=== PATIENT | female | born 1930 | race Caucasian/White ===

== ENCOUNTER 2017-09-09 14:52 | Emergency (ER) | payer MEDICARE ==
[2017-09-09 15:10] VITALS: BP 168/88
--- NOTE | 2017-09-09 15:37 | EDM.PDOC ---
ED HPI GENERAL MEDICAL PROBLEM - General Chief Complaint: General Stated Complaint: Fall, R knee pain Time Seen by Provider: 09/09/17 14:56 Source of Information: Reports: Patient History Limitations: Reports: No Limitations - History of Present Illness INITIAL COMMENTS - FREE TEXT/NARRATIVE: Patient fell this morning and reports injuring right lower leg. Comes to ER concerned that she may have re-torn cartilage that was previously injured in that same leg. Earlier injury required Orthopedic surgery in right knee area. Contused area noted today is below right knee. Patient uses walker at home, sometimes cane. Has cane during this visit. Denies other injuries at this time. No pain above/below injured area. No neuro changes. Was in process of turning and subsequently lost balance when she fell. Left Leg Pain Score (Numeric/FACES): 7 - Related Data Allergies Allergy/AdvReac Type Severity Reaction Status Date / Time nitrofurantoin Allergy Stomach Verified 10/30/14 09:44 [From Macrobid] Upset nitrofurantoin Allergy Stomach Verified 10/30/14 09:44 macrocrystalline Upset [From Macrobid] Sulfa (Sulfonamide Allergy Stomach Verified 10/30/14 09:44 Antibiotics) Upset Home Meds: Home Meds [place] 1 tab PO DAILY 10/30/14 [History] Ginkgo Biloba 40 mg PO BID 10/30/14 [History] Multivit with Calcium,Iron,Min [Therapeutic M] 1 each PO TID 10/30/14 [History] Aspirin 81 mg PO DAILY PRN 07/16/15 [History] Cranberry 500 mg PO BID 07/16/15 [History] Vit A/Vit C/Vit E/Zinc/Copper [Preservision] 1 tab PO DAILY 09/09/17 [History] Past Medical History Cardiovascular History: Reports: Hypertension, Other (See Below) (pacemaker) Endocrine/Metabolic History: Reports: Diabetes, Type II Social & Family History - Tobacco Use Smoking Status *Q: Never Smoker Second Hand Smoke Exposure: No - Alcohol Use Days Per Week of Alcohol Use: 0 - Recreational Drug Use Recreational Drug Use: No Drug Use in Last 12 Months: No - Living Situation & Occupation Living situation: Reports: , Alone Occupation: Other ED ROS GENERAL - Review of Systems Review Of Systems: ROS reveals no pertinent complaints other than HPI. Constitutional: Denies: Fever, Chills, Weakness, Night Sweats, Diaphoresis, Decreased Appetite HEENT: Reports: No Symptoms Respiratory: Reports: No Symptoms Cardiovascular: Reports: No Symptoms GI/Abdominal: Reports: No Symptoms : Reports: No Symptoms Musculoskeletal: Reports: No Symptoms Skin: Reports: Bruising Neurological: Reports: No Symptoms Psychiatric: Reports: No Symptoms Hematologic/Lymphatic: Reports: No Symptoms ED EXAM, GENERAL - Physical Exam Exam: See Below Exam Limited By: No Limitations General Appearance: Alert, WD/WN, No Apparent Distress Eye Exam: Bilateral Eye: EOMI, PERRL Head: Atraumatic, Normocephalic Neck: Supple, Non-Tender Respiratory/Chest: No Respiratory Distress Cardiovascular: Normal Peripheral Pulses, Regular Rate, Rhythm, No Edema Peripheral Pulses: 2+: Brachial (L), Brachial (R), Dorsalis Pedis (L), Dorsalis Pedis (R) GI/Abdominal: Soft, Non-Tender Extremities: Normal Capillary Refill, Other (bruising and mild swelling noted anterior lower leg just below knee. Both knees have good ROM/non-tender with palpation/no crepitus. Right leg non-tender distal to injury. ) Neurological: Alert, Oriented, Normal Cognition, No Motor/Sensory Deficits Psychiatric: Normal Affect, Normal Mood Skin Exam: Warm, Dry Course - Vital Signs Last Recorded V/S: Last Vital Signs Temp 37.1 C 09/09/17 15:00 Pulse 88 09/09/17 15:00 Resp 16 09/09/17 15:00 BP 168/88 H 09/09/17 15:00 Pulse Ox 100 09/09/17 15:00 - Orders/Labs/Meds Orders: Active Orders 24 hr Category Date Time Status Knee 3V Rt [CR] Stat Exams 09/09/17 14:59 Ordered - Re-Assessments/Exams Free Text/Narrative Re-Assessment/Exam: 09/09/17 15:47 Xrays of knee taken. There appears to be a small irregularity in right patella but patient has no soreness or injury in this area. No Tibial plateau fracture or other abnormality identified in the proximal tib/fib area where bruising and swelling noted. Patient observed ambulating. She does have antalgic gait and has limitations with using of both lower extremities. She was offered admission as observation patient in order to get assistance with ADLs given that her mobility is worsened from the fall. Would also be able to have PT/OT evaluate patient in the morning. Patient declined and preferred to try to go home, saying that she has a walker that she can use once there. Precautions reviewed prior to discharge, especially pertaining to ambulating given her previous baseline gait issues that area now further compromised due to the fall injury. Patient is agreeable with plan. She was given ride home via [employer] bus. Departure - Departure Time of Disposition: 15:33 Disposition: Home, Self-Care 01 Condition: Good Clinical Impression: Contusion of right lower extremity Qualifiers: Encounter type: initial encounter Qualified Code(s): S80.11XA - Contusion of right lower leg, initial encounter Clinical Impression: (Ruled Out): Contusion of right knee - Discharge Information Referrals: Evette Lacy NP [Primary Care Provider] - Forms: ED Department Discharge Additional Instructions: Use your walker for more stability when walking. Ice the bruised area to help with swelling and pain. If you find that you can not perform basic chores at home, like feeding yourself or using bathroom, you can return to the ER and we can consider admitting you for 1-2 days to help assist you with these things while the initial knee pain/swelling improves. OK to use Tylenol for pain. - My Orders Last 24 Hours: My Active Orders 09/09/17 14:59 Knee 3V Rt [CR] Stat - Assessment/Plan Last 24 Hours: My Active Orders 09/09/17 14:59 Knee 3V Rt [CR] Stat
== END 2017-09-09 15:45 | disposition home or self-care (01) ==
LOC: LL.ED 14:52
DX: S80.11XA Contusion of right lower leg, initial encounter (principal); I10 Essential (primary) hypertension; E11.9 Type 2 diabetes mellitus without complications; Z88.2 Allergy status to sulfonamides; Z88.8 Allergy status to other drugs, medicaments and biological substances; Z79.82 Long term (current) use of aspirin; X58.XXXA Exposure to other specified factors, initial encounter
CPT/HCPCS: 73562-RT; 99283

== ENCOUNTER 2020-12-09 23:18 | Emergency (ER) | payer MEDICARE ==
[2020-12-09] MEDS ORDERED: Sodium Chloride 0.9% 10 ML Syringe FLUSH PRN (23:54)
[2020-12-10 00:34] LABS: CHLORIDE,CL 101 mmol/L (98-107); SODIUM,NA 135 mmol/L (136-145)
[2020-12-10 00:58] LABS: CORONAVIRUS COVID-19 AG NEGATIVE (NEGATIVE)
--- NOTE | 2020-12-10 01:13 | EDM.PDOC ---
ED HPI GENERAL MEDICAL PROBLEM - General Chief Complaint: General Stated Complaint: fell outside Time Seen by Provider: 12/09/20 23:30 Source of Information: Reports: Patient, EMS History Limitations: Reports: No Limitations - History of Present Illness INITIAL COMMENTS - FREE TEXT/NARRATIVE: Pt tripped and fell in garage and laid there for several hours Neighbor called EMS Pt presents to ER with complaints of right hip pain No other complaints Onset: Today, Sudden Duration: Hour(s): Location: Reports: Lower Extremity, Right Quality: Reports: Throbbing Severity: Moderate Improves with: Reports: Immobilization Worsens with: Reports: Movement - Related Data Allergies Allergy/AdvReac Type Severity Reaction Status Date / Time nitrofurantoin Allergy Stomach Verified 12/09/20 23:50 [From Macrobid] Upset nitrofurantoin Allergy Stomach Verified 12/09/20 23:50 macrocrystalline Upset [From Macrobid] Sulfa (Sulfonamide Allergy Stomach Verified 12/09/20 23:50 Antibiotics) Upset Home Meds: Home Meds [place] 1 tab PO DAILY 10/30/14 [History] Ginkgo Biloba 40 mg PO BID 10/30/14 [History] Multivit with Calcium,Iron,Min [Therapeutic M] 1 each PO TID 10/30/14 [History] Aspirin 81 mg PO DAILY PRN 07/16/15 [History] Cranberry 500 mg PO BID 07/16/15 [History] Vit A/Vit C/Vit E/Zinc/Copper [Preservision] 1 tab PO DAILY 09/09/17 [History] Past Medical History HEENT History: Reports: Hard of Hearing, Impaired Vision, Other (See Below) Other HEENT History: wears glasses and bilat hearing aides Cardiovascular History: Reports: Hypertension, Pacemaker, Other (See Below) 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 History: Reports: Endocrine/Metabolic History: Reports: Diabetes, Type II - Past Surgical History Cardiovascular Surgical History: Reports: Pacer Social & Family History - Tobacco Use Tobacco Use Status *Q: Unknown Ever Used Tobacco Second Hand Smoke Exposure: No - Caffeine Use Caffeine Use: Reports: Coffee - Recreational Drug Use Recreational Drug Use: No - Living Situation & Occupation Living situation: Reports: , Alone Occupation: Other ED ROS GENERAL - Review of Systems Review Of Systems: See Below Constitutional: Reports: No Symptoms HEENT: Reports: No Symptoms Respiratory: Reports: No Symptoms Cardiovascular: Reports: No Symptoms GI/Abdominal: Reports: No Symptoms Musculoskeletal: Reports: Joint Pain, Other (Right hip pain) Neurological: Reports: No Symptoms Psychiatric: Reports: No Symptoms ED EXAM, GENERAL - Physical Exam Exam: See Below Exam Limited By: No Limitations General Appearance: Alert, WD/WN, Mild Distress Eye Exam: Bilateral Eye: EOMI, PERRL Ears: Normal TMs Nose: Normal Inspection Throat/Mouth: Normal Oropharynx Head: Atraumatic Neck: Supple, Non-Tender Respiratory/Chest: Lungs Clear Cardiovascular: Regular Rate, Rhythm GI/Abdominal: Soft, Non-Tender Extremities: Other (Right hip tender with palpation RLE shortened and rotated Neurovascular intact) Neurological: Alert, Oriented, No Motor/Sensory Deficits Psychiatric: Normal Affect, Normal Mood Course - Vital Signs Last Recorded V/S: Last Vital Signs Temp 96.7 F L 12/10/20 00:43 Pulse 66 12/09/20 23:37 Resp 20 12/09/20 23:37 BP 113/57 L 12/09/20 23:37 Pulse Ox 98 12/09/20 23:37 - Orders/Labs/Meds Orders: Active Orders 24 hr Category Date Time Status Hip Min 1V Lt [CR] Stat Exams 12/09/20 23:57 Ordered Hip Min 1V Rt [CR] Stat Exams 12/09/20 23:34 Taken CORONAVIRUS COVID-19 ALEXUS [MOLEC] Stat Lab 12/10/20 00:10 Received Sodium Chloride 0.9% [Saline Flush] Med 12/09/20 23:54 Active 10 ml FLUSH ASDIRECTED PRN Saline Lock Insert [OM.PC] Routine Oth 12/09/20 23:54 Ordered Medication Orders Sodium Chloride (Saline Flush) 10 ml FLUSH ASDIRECTED PRN PRN Reason: Keep Vein Open Labs: Laboratory Tests 12/10/20 12/10/20 Range/Units 00:10 00:10 WBC 17.9 H (4.0-10.2) K/uL RBC 2.85 L (3.77-5.09) M/uL Hgb 9.8 L D (11.7-15.5) g/dL Hct 29.6 L (34.0-46.0) % MCV 103.9 H (84.0-98.0) fL MCH 34.4 H (28.2-33.3) pg MCHC 33.1 (31.7-36.0) g/dL RDW 14.3 H (11.2-14.1) % Plt Count 275 (150-350) K/uL Neut % (Auto) 80.6 H (45.0-80.0) % Lymph % (Auto) 9.6 L (10.0-50.0) % [place] % (Auto) 9.5 (2.0-14.0) % Eos % (Auto) 0.1 (0.0-5.0) % Baso % (Auto) 0.2 (0.0-2.0) % Neut # (Auto) 14.40 H (1.40-7.00) K/uL Lymph # (Auto) 1.72 (0.50-3.50) K/uL [place] # (Auto) 1.69 H (0.00-1.00) K/uL Eos # (Auto) 0.01 (0.00-0.50) K/uL Baso # (Auto) 0.04 (0.00-0.20) K/uL Sodium 135 L (136-145) mmol/L Potassium 3.1 L (3.5-5.1) mmol/L Chloride 101 (98-107) mmol/L Carbon Dioxide 19.5 L D (21.0-32.0) mmol/L BUN 25 H (7-18) mg/dL Creatinine 0.96 (0.51-1.17) mg/dL Est Cr Clr Drug Dosing 34.31 mL/min Estimated GFR (MDRD) 55 mL/min Glucose 514 H* (74-106) mg/dL Calcium 9.0 (8.5-10.1) mg/dL Total Bilirubin 0.5 (0.2-1.0) mg/dL AST 29 (15-37) U/L ALT 22 (12-78) U/L Alkaline Phosphatase 53 (46-116) IU/L Total Protein 6.3 L (6.4-8.2) g/dL Albumin 3.4 (3.4-5.0) g/dL SARS-CoV-2 Ag (Rapid) Negative (NEGATIVE) Meds: Medications Generic Name Dose Route Start Last Admin Trade Name Freq PRN Reason Stop Dose Admin Sodium Chloride 10 ml 12/09/20 23:54 Saline Flush FLUSH ASDIRECTED PRN Keep Vein Open - Re-Assessments/Exams Free Text/Narrative Re-Assessment/Exam: 12/10/20 01:10 See lab Xray: Moderately angulated right intertrochanteric hip fracture D/W Dr [facility] Will accept in transfer Transfer via EMS Departure - Departure Time of Disposition: 01:15 Disposition: DC/Tfer to [facility] 02 Clinical Impression: Closed right hip fracture Qualifiers: Encounter type: initial encounter Qualified Code(s): S72.001A - Fracture of unspecified part of neck of right femur, initial encounter for closed fracture - Discharge Information *PRESCRIPTION DRUG MONITORING PROGRAM REVIEWED*: Not Applicable *COPY OF PRESCRIPTION DRUG MONITORING REPORT IN PATIENT MELECIO: Not Applicable Referrals: PCP,Unknown [Primary Care Provider] - Sepsis Event Note (ED) - Evaluation Sepsis Screening Result: No Definite Risk - Focused Exam Vital Signs: Vital Signs Temp Pulse Resp BP Pulse Ox 12/10/20 00:43 96.7 F L 12/09/20 23:37 66 20 113/57 L 98 12/09/20 23:35 94.9 F L 76 22 H 116/68 93 L 12/09/20 23:25 66 20 106/64 93 L - My Orders Last 24 Hours: My Active Orders 12/09/20 23:34 Hip Min 1V Rt [CR] Stat 12/09/20 23:54 Sodium Chloride 0.9% [Saline Flush] 10 ml FLUSH ASDIRECTED PRN Saline Lock Insert [OM.PC] Routine 12/09/20 23:57 Hip Min 1V Lt [CR] Stat 12/10/20 00:10 CORONAVIRUS COVID-19 ALEXUS [MOLEC] Stat - Assessment/Plan Last 24 Hours: My Active Orders 12/09/20 23:34 Hip Min 1V Rt [CR] Stat 12/09/20 23:54 Sodium Chloride 0.9% [Saline Flush] 10 ml FLUSH ASDIRECTED PRN Saline Lock Insert [OM.PC] Routine 12/09/20 23:57 Hip Min 1V Lt [CR] Stat 12/10/20 00:10 CORONAVIRUS COVID-19 ALEXUS [MOLEC] Stat
[2020-12-10] MEDS ORDERED: Sodium Chloride 0.9% 500 ML IV SCH (02:15)
[2020-12-10 03:22] VITALS: BP 109/68; PULSE 76
== END 2020-12-10 02:38 ==
LOC: LL.ED 23:18
DX: S72.141A Displaced intertrochanteric fracture of right femur, initial encounter for closed fracture (principal); I10 Essential (primary) hypertension; E11.9 Type 2 diabetes mellitus without complications; Z88.1 Allergy status to other antibiotic agents; Z88.2 Allergy status to sulfonamides; Z20.822 Contact with and (suspected) exposure to COVID-19; Z79.899 Other long term (current) drug therapy; Z79.82 Long term (current) use of aspirin; W19.XXXA Unspecified fall, initial encounter; Y92.59 Other trade areas as the place of occurrence of the external cause
CPT/HCPCS: 36415; 80053; 85025; 87426; 99284; 99285; J7040; U0002

== ENCOUNTER 2020-12-14 11:43 | Inpatient (IN) | payer MEDICARE ==
--- NOTE | 2020-12-14 16:19 | PCM.HP.2 ---
H&P History of Present Illness - General Date of Service: 12/14/20 Admit Problem/Dx: S/P surgical fixation right hip fracture Source of Information: Patient, Family, Other ([facility] records) History Limitations: Reports: No Limitations - History of Present Illness Initial Comments - Free Text/Narative: Patient referred to Swing Bed from [facility] in [place]. Recent fall with subsequent right hip fracture that required surgical repair. Noted to have elevated blood sugars and blood pressure readings during stay in [place]. Here for PO/OT with hope of being able to return to her own home. - Related Data Allergies/Adverse Reactions: Allergies Allergy/AdvReac Type Severity Reaction Status Date / Time nitrofurantoin Allergy Stomach Verified 12/14/20 15:19 [From Macrobid] Upset nitrofurantoin Allergy Stomach Verified 12/14/20 15:19 macrocrystalline Upset [From Macrobid] Sulfa (Sulfonamide Allergy Stomach Verified 12/14/20 15:19 Antibiotics) Upset Home Medications: Home Meds Ginkgo Biloba 40 mg PO DAILY 10/30/14 [History] Aspirin 81 mg PO Q48H 07/16/15 [History] Acetaminophen [Tylenol] 650 mg PO Q4H PRN 12/14/20 [History] [place] 500 mg PO DAILY 12/14/20 [History] Bisacodyl [Laxative Suppository] 10 mg RC DAILY PRN 12/14/20 [History] Calcium Carb/D3/Mag AA Chelate [Coral Calcium Capsule] 1 each PO DAILY 12/14/20 [History] Cinnamon Bark [Cinnamon] 1,000 mg PO DAILY 12/14/20 [History] Cranberry Fruit Extract [Cranberry] 425 mg PO DAILY 12/14/20 [History] Docusate Sodium/Sennosides [Senna Plus] 2 each PO BID PRN 12/14/20 [History] Enoxaparin [Lovenox] 40 mg SQ DAILY 12/14/20 [History] Insulin Glarg,Human.Rec.Analog [Lantus] 8 unit SQ DAILY 12/14/20 [History] Lactobacillus Acidophilus [Probiotic] 1 each PO DAILY 12/14/20 [History] Losartan [Cozaar] 25 mg PO DAILY 12/14/20 [History] Metoprolol Tartrate [Lopressor] 12.5 mg PO Q12HR 12/14/20 [History] Non-Formulary Medication [NF Drug] 1 each PO DAILY 12/14/20 [History] Non-Formulary Medication [NF Drug] 1 each PO DAILY 12/14/20 [History] polyethylene glycoL 3350 [MiraLAX] 17 gm PO DAILY 12/14/20 [History] Past Medical History HEENT History: Reports: Hard of Hearing, Impaired Vision, Other (See Below) Other HEENT History: wears glasses and bilat hearing aides Cardiovascular History: Reports: Aneurysm (AAA), Hypertension, Pacemaker, Other (See Below) Other Cardiovascular History: NSTEMI. 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 Genitourinary History: Reports: Chronic Renal Insuffiency (State 3a) [employer] History: Reports: Musculoskeletal History: Reports: Osteoarthritis Endocrine/Metabolic History: Reports: Diabetes, Type II Hematologic History: Reports: Anemia (Macrocytic Anemia) - Past Surgical History Cardiovascular Surgical History: Reports: Pacer Other Musculoskeletal Surgeries/Procedures:: RTHA 12/09/20 ORIF Social & Family History - Caffeine Use Caffeine Use: Reports: Coffee - Alcohol Use Alcohol Use History: No - Living Situation & Occupation Living situation: Reports: , Alone Occupation: Other H&P Review of Systems - Review of Systems: Review Of Systems: See Below General: Reports: Weakness. Denies: Fever, Chills, Night Sweats, Diaphoresis, Weight Loss HEENT: Denies: Headaches, Sore Throat, Visual Changes Pulmonary: Reports: No Symptoms Cardiovascular: Reports: No Symptoms Gastrointestinal: Reports: No Symptoms Genitourinary: Reports: No Symptoms Musculoskeletal: Reports: Other (right hip pain ) Skin: Reports: Other (healing incision right hip/bruising from IVs and blood draws arms. ) Psychiatric: Reports: No Symptoms Neurological: Reports: Difficulty Walking (s/p surgery on right hip), Weakness (generalized). Denies: Change in Speech Hematologic/Lymphatic: Denies: Swollen Glands Exam - Exam Exam: See Below - Exam Quality Assessment: Urinary Catheter, DVT Prophylaxis General: Alert, Oriented, Cooperative HEENT: Conjunctiva Clear, EACs Clear, EOMI, Hearing Intact, Mucosa Moist & Gutierrez, Nares Patent, Pupils Equal, Pupils Reactive Neck: Supple, Trachea Midline Lungs: Clear to Auscultation, Normal Respiratory Effort Cardiovascular: Regular Rate, Regular Rhythm. No: Systolic Murmur, Diastolic Murmur GI/Abdominal Exam: Normal Bowel Sounds, Soft, Non-Tender, No Distention (Female) Exam: Deferred Rectal (Female) Exam: Deferred Back Exam: No: CVA Tenderness (L), CVA Tenderness (R), Muscle Spasm, Paraspinal Tenderness, Vertebral Tenderness Extremities: Normal Capillary Refill, Other (healing incision lateral right upper thigh from her recent surgery. Dressing left in place. No drainage/swelling/redness noted. ). No: Pedal Edema, Joint Swelling, Osmar's Sign, Leg Pain, Increased Warmth, Mottled, Pallor, Redness Peripheral Pulses: 2+: Radial (L), Radial (R), Dorsalis Pedis (L), Dorsalis Pedis (R) Skin: Warm, Dry, Other (scattered bruises on arms from IVs and blood draws. Healing scrape right anterior knee from patient's recent fall. Healing incision right hip area) Neurological: Cranial Nerves Intact, Reflexes Equal Bilateral, Strength Equal Bilateral Neuro Extensive - Mental Status: Alert, Oriented x3, Normal Mood/Affect, Normal Cognition, Memory Intact - Problem List (1) Closed right hip fracture SNOMED Code(s): 992731103 ICD Code: S72.001A - FRACTURE OF UNSP PART OF NECK OF RIGHT FEMUR, INIT Status: Acute Priority: High Current Visit: No Onset Date: 12/09/20 Problem Details: Right hip fracture from fall in garage at home. ORIF at [facility] in [place]. Here for PT/OT. Qualifiers: Encounter type: subsequent encounter Qualified Code(s): S72.001A - Fracture of unspecified part of neck of right femur, initial encounter for closed fracture (2) HTN, Benign hypertension SNOMED Code(s): 73902381 ICD Code: I10 - ESSENTIAL (PRIMARY) HYPERTENSION Status: Chronic Priority: High Current Visit: Yes Problem Details: Patient not on any antihypertensives until her recent fall due to her refusal to take them in the past. Antihypertensive therapy initiated by [facility]. Observe trends. (3) Diabetes mellitus SNOMED Code(s): 73177255 ICD Code: E11.9 - TYPE 2 DIABETES MELLITUS WITHOUT COMPLICATIONS Status: Chronic Priority: Medium Current Visit: Yes Problem Details: Started on insulin therapy by [facility]. Continue accuchecks and adjust doses as indicated. Patient received diabetic consult while in [place]. (4) Macrocytic anemia SNOMED Code(s): 42593079 ICD Code: D53.9 - NUTRITIONAL ANEMIA, UNSPECIFIED Status: Chronic Priority: Low Current Visit: Yes Problem Details: No change in current management per [facility] transfer packet. Observe. (5) Chronic kidney disease SNOMED Code(s): 005841220 ICD Code: N18.9 - CHRONIC KIDNEY DISEASE, UNSPECIFIED Status: Chronic Priority: Low Current Visit: Yes Problem Details: stable per history/observe Qualifiers: Chronic kidney disease stage: stage 3 (moderate) (6) Diastolic dysfunction without heart failure SNOMED Code(s): 9613432 ICD Code: I51.89 - OTHER ILL-DEFINED HEART DISEASES Status: Chronic Priority: [facility] Current Visit: No (7) History of non-ST elevation myocardial infarction (NSTEMI) SNOMED Code(s): 735535065 ICD Code: I25.2 - OLD MYOCARDIAL INFARCTION Status: Acute Priority: Low Current Visit: No Problem Details: Recent evaluation by Cardiology at [facility]. Angiogram performed. To continue follow up as directed by Cardiology. 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 SNOMED Code(s): 83278980 ICD Code: I44.1 - ATRIOVENTRICULAR BLOCK, SECOND DEGREE Status: Chronic Priority: Low Current Visit: Yes Problem Details: Has been stable (9) Abdominal aortic aneurysm SNOMED Code(s): 739961481 ICD Code: I71.4 - ABDOMINAL AORTIC ANEURYSM, WITHOUT RUPTURE Status: Chronic Priority: [facility] Current Visit: No Problem Details: Stable by recent repeat abdominal aortic ultrasound as above Qualifiers: Presence of rupture: without rupture Qualified Code(s): I71.4 - Abdominal aortic aneurysm, without rupture (10) Pacemaker SNOMED Code(s): 392447554 ICD Code: Z95.0 - PRESENCE OF CARDIAC PACEMAKER Status: Chronic Current Visit: No Problem Details: This was placed in [facility] on 07/17/15 at [facility] per patient report Problem List Initiated/Reviewed/Updated: Yes Orders Last 24hrs: as above. Assessment/Plan Comment:: as above. Initiate PT/OT. Continue to monitor blood sugar and BP response to current interventions. If patient does well, family would like her to be able to return home/arrange home health. - Mortality Measure Prognosis:: Poor (Guarded prognosis given patient's age and concommitant co- morbidities.)
[2020-12-14] MEDS ORDERED: 50% Dextrose in Water 50 ML Syringe IV PRN ×2 (16:33→16:54)
[2020-12-14] MEDS ORDERED: Glucagon,Human Recombinant 1 MG Vial IM PRN ×2 (16:33→16:54)
[2020-12-14] MEDS ORDERED: Bisacodyl 10 MG Supp RECTAL PRN (16:33)
[2020-12-14] MEDS: Cholecalciferol (Vitamin D3) 10 MCG Tab PO SCH (16:53)
[2020-12-14] MEDS: Magnesium Oxide 400 MG Tab PO SCH (16:53)
[2020-12-14] MEDS: traMADol 50 MG Tab PO PRN (16:54)
[2020-12-14] MEDS: Insulin Regular, Human 100 Units/ML 3 ML Vial SUBCUT SCH (17:22)
[2020-12-14] MEDS: Metoprolol Tartrate 25 MG Tab PO SCH (20:31)
[2020-12-15] MEDS: Aluminum Hydroxide/Magnesium Hydroxide/Simethicone Susp 30 ML Cup PO PRN (00:43)
[2020-12-15] MEDS: traMADol 50 MG Tab PO PRN ×3 (00:57→19:51)
[2020-12-15] MEDS: Polyethylene Glycol 3350 Powder 17 GM Packet PO SCH (07:10)
[2020-12-15] MEDS: Magnesium Oxide 400 MG Tab PO SCH (07:13)
[2020-12-15] MEDS: Acetaminophen 325 MG Tab PO PRN ×3 (07:15→17:15)
[2020-12-15] MEDS: Lactobacillus Rhamnosus GG (Probiotic) Cap PO SCH (07:17)
[2020-12-15] MEDS: Metoprolol Tartrate 25 MG Tab PO SCH ×2 (07:18→19:52)
[2020-12-15] MEDS: Losartan 50 MG Tab PO SCH (07:19)
[2020-12-15] MEDS: Cholecalciferol (Vitamin D3) 10 MCG Tab PO SCH (07:19)
[2020-12-15] MEDS: Insulin Regular, Human 100 Units/ML 3 ML Vial SUBCUT SCH ×2 (07:20→17:13)
[2020-12-15] MEDS: Insulin Glarg,Human.Rec.Analog 100 Unit/ML SUBCUT SCH (07:22)
[2020-12-15] MEDS: Enoxaparin 40 MG/0.4 ML Syringe SUBCUT SCH (07:26)
[2020-12-15 07:57] LABS: CHLORIDE,CL 111 mmol/L (98-107); SODIUM,NA 142 mmol/L (136-145)
[2020-12-15] MEDS ORDERED: [UNRECOGNIZED DRUG - OTHER] PO SCH ×2 (08:00)
[2020-12-15] MEDS ORDERED: Non-Formulary Medication 1 Each (Cinnamon Bark [Cinnamon] 1,000 MG) PO SCH (08:00)
[2020-12-15] MEDS ORDERED: CRANBERRY FRUIT EXTRACT 425 MG PO SCH (08:00)
[2020-12-15] MEDS ORDERED: GINKGO BILOBA 40 MG PO SCH (08:00)
[2020-12-15] MEDS ORDERED: ALFALFA PO SCH (08:00)
[2020-12-15] MEDS ORDERED: Losartan 50 MG Tab PO SCH (08:00)
[2020-12-15] MEDS: Furosemide 20 MG Tab PO SCH (11:21)
[2020-12-16] MEDS: Magnesium Oxide 400 MG Tab PO SCH (07:11)
[2020-12-16] MEDS: Cholecalciferol (Vitamin D3) 10 MCG Tab PO SCH (07:11)
[2020-12-16] MEDS: Magnesium Hydroxide 400 MG/5 ML Susp 30 ML Cup PO PRN (07:11)
[2020-12-16] MEDS: traMADol 50 MG Tab PO PRN ×2 (07:12→20:07)
[2020-12-16] MEDS: Metoprolol Tartrate 25 MG Tab PO SCH ×2 (07:12→20:07)
[2020-12-16] MEDS: Lactobacillus Rhamnosus GG (Probiotic) Cap PO SCH (07:13)
[2020-12-16] MEDS: Losartan 50 MG Tab PO SCH (07:13)
[2020-12-16] MEDS: Enoxaparin 40 MG/0.4 ML Syringe SUBCUT SCH (07:13)
[2020-12-16] MEDS: Aspirin 81 MG Tab.Chew PO SCH (07:13)
[2020-12-16] MEDS: Insulin Regular, Human 100 Units/ML 3 ML Vial SUBCUT SCH ×2 (07:13→17:45)
[2020-12-16] MEDS: Insulin Glarg,Human.Rec.Analog 100 Unit/ML SUBCUT SCH (07:14)
[2020-12-16] MEDS: Polyethylene Glycol 3350 Powder 17 GM Packet PO SCH (07:14)
[2020-12-16] MEDS: Furosemide 20 MG Tab PO SCH (13:06)
[2020-12-16] MEDS: Acetaminophen 325 MG Tab PO PRN (17:46)
[2020-12-16] MEDS ORDERED: Furosemide 20 MG Tab PO ONE (19:30)
--- NOTE | 2020-12-16 19:38 | PCM.SN.2 ---
- Free Text/Narrative Note: Note that the patient is still having problems with elevated blood pressures, including systolic blood pressures in the 180s in spite of starting low-dose Lasix therapy and increasing her losartan therapy on admission. She is also having increasing dependent edema with known previous history of coronary artery disease, however no known history of CHF or current anginal type symptoms. Her previous Lasix will be increased to twice daily basis with additional initiation of low-dose spironolactone and potassium supplementation with caution secondary to her previous history of renal insufficiency. In addition, note some postoperative anemia on admission. Blood work will be repeated in the a.m. on 12/17 with and additional chest x-ray at that time with repeat blood work recommended later in the week secondary to medication changes as above with close follow-up secondary to possibility of hyperkalemia with the above medications. Continue vitals on a every 8 hour basis for now. Patient may need IV Lasix therapy depending on her clinical course.
[2020-12-16] MEDS: Spironolactone 25 MG Tab PO SCH (20:08)
[2020-12-17 07:44] LABS: CHLORIDE,CL 105 mmol/L (98-107); SODIUM,NA 141 mmol/L (136-145)
[2020-12-17] MEDS: Enoxaparin 40 MG/0.4 ML Syringe SUBCUT SCH (08:04)
[2020-12-17] MEDS: Lactobacillus Rhamnosus GG (Probiotic) Cap PO SCH (08:05)
[2020-12-17] MEDS: Spironolactone 25 MG Tab PO SCH ×2 (08:05→17:28)
[2020-12-17] MEDS: Metoprolol Tartrate 25 MG Tab PO SCH ×2 (08:06→19:11)
[2020-12-17] MEDS: Magnesium Oxide 400 MG Tab PO SCH (08:07)
[2020-12-17] MEDS: Cholecalciferol (Vitamin D3) 10 MCG Tab PO SCH (08:07)
[2020-12-17] MEDS: Furosemide 20 MG Tab PO SCH ×2 (08:08→11:45)
[2020-12-17] MEDS: Losartan 50 MG Tab PO SCH (08:08)
[2020-12-17] MEDS: Insulin Regular, Human 100 Units/ML 3 ML Vial SUBCUT SCH ×2 (08:09→17:29)
[2020-12-17] MEDS: Potassium Chloride 20 MEQ Tab.ER PO SCH (08:09)
[2020-12-17] MEDS: Polyethylene Glycol 3350 Powder 17 GM Packet PO SCH (08:10)
[2020-12-17] MEDS: Insulin Glarg,Human.Rec.Analog 100 Unit/ML SUBCUT SCH (08:11)
[2020-12-18] MEDS: Furosemide 20 MG Tab PO SCH ×2 (07:48→11:12)
[2020-12-18] MEDS: Metoprolol Tartrate 25 MG Tab PO SCH ×2 (07:48→20:35)
[2020-12-18] MEDS: Aspirin 81 MG Tab.Chew PO SCH (07:48)
[2020-12-18] MEDS: Magnesium Oxide 400 MG Tab PO SCH (07:48)
[2020-12-18] MEDS: Enoxaparin 40 MG/0.4 ML Syringe SUBCUT SCH (07:48)
[2020-12-18] MEDS: Cholecalciferol (Vitamin D3) 10 MCG Tab PO SCH (07:48)
[2020-12-18] MEDS: traMADol 50 MG Tab PO PRN ×2 (07:49→13:28)
[2020-12-18] MEDS: Polyethylene Glycol 3350 Powder 17 GM Packet PO SCH (07:49)
[2020-12-18] MEDS: Spironolactone 25 MG Tab PO SCH ×2 (07:49→17:11)
[2020-12-18] MEDS: Potassium Chloride 20 MEQ Tab.ER PO SCH (07:49)
[2020-12-18] MEDS: Lactobacillus Rhamnosus GG (Probiotic) Cap PO SCH (07:49)
[2020-12-18] MEDS: Losartan 50 MG Tab PO SCH (07:49)
[2020-12-18] MEDS: Insulin Glarg,Human.Rec.Analog 100 Unit/ML SUBCUT SCH (07:53)
[2020-12-18] MEDS: Insulin Regular, Human 100 Units/ML 3 ML Vial SUBCUT SCH ×2 (07:54→17:11)
[2020-12-18] MEDS: Acetaminophen 325 MG Tab PO PRN (11:12)
[2020-12-19] MEDS: Spironolactone 25 MG Tab PO SCH ×2 (08:25→17:16)
[2020-12-19] MEDS: Magnesium Oxide 400 MG Tab PO SCH (08:25)
[2020-12-19] MEDS: Potassium Chloride 20 MEQ Tab.ER PO SCH (08:26)
[2020-12-19] MEDS: Losartan 50 MG Tab PO SCH (08:26)
[2020-12-19] MEDS: Cholecalciferol (Vitamin D3) 10 MCG Tab PO SCH (08:26)
[2020-12-19] MEDS: Polyethylene Glycol 3350 Powder 17 GM Packet PO SCH (08:26)
[2020-12-19] MEDS: Furosemide 20 MG Tab PO SCH ×2 (08:27→11:56)
[2020-12-19] MEDS: Metoprolol Tartrate 25 MG Tab PO SCH ×2 (08:27→19:58)
[2020-12-19] MEDS: Enoxaparin 40 MG/0.4 ML Syringe SUBCUT SCH (08:28)
[2020-12-19] MEDS: Insulin Glarg,Human.Rec.Analog 100 Unit/ML SUBCUT SCH (08:29)
[2020-12-19] MEDS: Lactobacillus Rhamnosus GG (Probiotic) Cap PO SCH (08:31)
[2020-12-19] MEDS: Insulin Regular, Human 100 Units/ML 3 ML Vial SUBCUT SCH ×2 (08:31→17:16)
[2020-12-19] MEDS: Acetaminophen 325 MG Tab PO PRN (08:34)
[2020-12-19] MEDS: Ciprofloxacin 500 MG Tab PO SCH ×2 (09:54→17:16)
[2020-12-19] MEDS: traMADol 50 MG Tab PO PRN (13:48)
[2020-12-20] MEDS: Acetaminophen 325 MG Tab PO PRN ×2 (04:08→14:35)
[2020-12-20] MEDS: traMADol 50 MG Tab PO PRN ×2 (07:31→14:35)
[2020-12-20] MEDS: Magnesium Oxide 400 MG Tab PO SCH (07:32)
[2020-12-20] MEDS: Furosemide 20 MG Tab PO SCH ×2 (07:33→12:33)
[2020-12-20] MEDS: Losartan 50 MG Tab PO SCH (07:33)
[2020-12-20] MEDS: Lactobacillus Rhamnosus GG (Probiotic) Cap PO SCH (07:33)
[2020-12-20] MEDS: Aspirin 81 MG Tab.Chew PO SCH (07:34)
[2020-12-20] MEDS: Cholecalciferol (Vitamin D3) 10 MCG Tab PO SCH (07:34)
[2020-12-20] MEDS: Ciprofloxacin 500 MG Tab PO SCH ×2 (07:34→17:12)
[2020-12-20] MEDS: Potassium Chloride 20 MEQ Tab.ER PO SCH (07:34)
[2020-12-20] MEDS: Enoxaparin 40 MG/0.4 ML Syringe SUBCUT SCH (07:35)
[2020-12-20] MEDS: Spironolactone 25 MG Tab PO SCH ×2 (07:35→17:12)
[2020-12-20] MEDS: Insulin Regular, Human 100 Units/ML 3 ML Vial SUBCUT SCH ×2 (07:36→17:16)
[2020-12-20] MEDS: Metoprolol Tartrate 25 MG Tab PO SCH ×2 (07:37→19:30)
[2020-12-20] MEDS: Polyethylene Glycol 3350 Powder 17 GM Packet PO SCH (07:50)
[2020-12-20] MEDS: Insulin Glarg,Human.Rec.Analog 100 Unit/ML SUBCUT SCH (07:51)
[2020-12-21] MEDS: Acetaminophen 325 MG Tab PO PRN (07:47)
[2020-12-21] MEDS: traMADol 50 MG Tab PO PRN (07:49)
[2020-12-21] MEDS: Furosemide 20 MG Tab PO SCH ×2 (07:54→11:43)
[2020-12-21] MEDS: Magnesium Oxide 400 MG Tab PO SCH (07:54)
[2020-12-21] MEDS: Metoprolol Tartrate 25 MG Tab PO SCH ×2 (07:55→19:48)
[2020-12-21] MEDS: Lactobacillus Rhamnosus GG (Probiotic) Cap PO SCH (07:56)
[2020-12-21] MEDS: Spironolactone 25 MG Tab PO SCH ×2 (07:56→17:47)
[2020-12-21] MEDS: Losartan 50 MG Tab PO SCH (07:56)
[2020-12-21 07:57] LABS: CHLORIDE,CL 99 mmol/L (98-107); SODIUM,NA 134 mmol/L (136-145)
[2020-12-21] MEDS: Ciprofloxacin 500 MG Tab PO SCH ×2 (07:57→17:48)
[2020-12-21] MEDS: Cholecalciferol (Vitamin D3) 10 MCG Tab PO SCH (07:58)
[2020-12-21] MEDS: Enoxaparin 40 MG/0.4 ML Syringe SUBCUT SCH (07:58)
[2020-12-21] MEDS: Potassium Chloride 20 MEQ Tab.ER PO SCH (07:58)
[2020-12-21] MEDS: Insulin Glarg,Human.Rec.Analog 100 Unit/ML SUBCUT SCH (08:02)
[2020-12-21] MEDS: Polyethylene Glycol 3350 Powder 17 GM Packet PO SCH (08:03)
[2020-12-21] MEDS: Insulin Regular, Human 100 Units/ML 3 ML Vial SUBCUT SCH ×2 (08:03→17:53)
--- NOTE | 2020-12-21 10:07 | PCM.PN ---
- General Info Date of Service: 12/21/20 Admission Dx/Problem (Free Text): S/P surgical fixation right hip fracture Subjective Update: The patient is a poor historian secondary to her emotional status and severe presbycusis Functional Status: Reports: Pain Controlled, Tolerating Diet, Urinating (Lugo catheter), New Symptoms (Increasing depression). Denies: Ambulating (Limited with assist only), Incentive Spirometry Pain Score: 6 (Normal postoperative pain) - Review of Systems General: Reports: Weakness (Slowly improving), Appetite (Adequate). Denies: Fever, Fatigue, Chills, Night Sweats HEENT: Reports: No Symptoms Pulmonary: Reports: No Symptoms Cardiovascular: Reports: No Symptoms. Denies: Edema (Improved dependent edema) Gastrointestinal: Reports: No Symptoms Genitourinary: Reports: Retention (Lugo catheter in place), Other (Recent UTI as below) Musculoskeletal: Reports: Joint Pain (Right hip slowly improving) Skin: Reports: No Symptoms. Denies: Diaphoresis, Bruising Neurological: Reports: Difficulty Walking (Postoperative), Weakness (As above). Denies: Confusion Psychiatric: Reports: Depression (Moderate), Anxiety (Mild to moderate). Denies: Confusion, Agitation, Cravings, Hallucinations - Patient Data Vitals - Most Recent: Last Vital Signs Temp 36.9 C 12/21/20 08:00 Pulse 68 12/21/20 08:00 Resp 20 12/21/20 08:00 BP 138/60 12/21/20 08:00 Pulse Ox 97 12/21/20 08:00 Vital Signs (72 hours) 12/18/20 12/18/20 12/19/20 20:00 20:35 08:00 Temperature [ 36.8 C 36.8 C Temporal] Pulse, 60 Peripheral Pulse, 60 65 Peripheral [ Right Pulse Oximetry] Respiratory 20 16 Rate Blood Pressure 101/71 Blood Pressure 101/71 155/63 H [Right Upper Arm] O2 Sat by Pulse 98 100 Oximetry 12/19/20 12/19/20 12/19/20 08:26 08:27 19:57 Temperature [ 36.9 C Temporal] Pulse, 65 Peripheral Pulse, 52 L Peripheral [ Right Pulse Oximetry] Respiratory 20 Rate Blood Pressure 155/63 H 155/63 H Blood Pressure 144/53 H [Right Upper Arm] O2 Sat by Pulse 100 Oximetry 12/19/20 12/20/20 12/20/20 19:58 07:29 07:33 Temperature [ 36.4 C Temporal] Pulse, 52 L Peripheral Pulse, 70 Peripheral [ Right Pulse Oximetry] Respiratory 19 Rate Blood Pressure 144/53 H 132/67 Blood Pressure 132/67 [Right Upper Arm] O2 Sat by Pulse 100 Oximetry 12/20/20 12/20/20 12/20/20 07:37 19:30 19:53 Temperature [ Temporal] Pulse, 70 95 Peripheral Pulse, 95 Peripheral [ Right Pulse Oximetry] Respiratory Rate Blood Pressure 132/67 141/63 H Blood Pressure 141/90 H [Right Upper Arm] O2 Sat by Pulse Oximetry 12/21/20 12/21/20 12/21/20 07:55 07:56 08:00 Temperature [ 36.9 C Temporal] Pulse, 68 Peripheral Pulse, 68 Peripheral [ Right Pulse Oximetry] Respiratory 20 Rate Blood Pressure 138/60 138/60 Blood Pressure 138/60 [Right Upper Arm] O2 Sat by Pulse 97 Oximetry Weight - Most Recent: 70.307 kg I&O - Last 24 Hours: Intake & Output 12/20/20 12/21/20 12/21/20 22:59 06:59 14:59 Intake Total 200 200 Output Total 1350 875 Balance -1150 -875 200 Imaging Impressions - Last 24 Hours: None Previous chest x-ray, portable, report from 12/17/2020 did indicate cardiomegaly, bipolar pacemaker, and small bilateral pleural effusions with possibility of pulmonary infiltrates. Lab Results Last 24 Hours: Laboratory Results - last 24 hr 12/20/20 12/20/20 12/21/20 Range/Units 11:19 17:06 07:10 WBC 10.6 H (4.0-10.2) K/uL RBC 2.85 L (3.77-5.09) M/uL Hgb 9.4 L (11.7-15.5) g/dL Hct 29.1 L (34.0-46.0) % MCV 102.1 H (84.0-98.0) fL MCH 33.0 (28.2-33.3) pg MCHC 32.3 (31.7-36.0) g/dL RDW 18.3 H (11.2-14.1) % Plt Count 392 H D (150-350) K/uL Neut % (Auto) 70.7 (45.0-80.0) % Lymph % (Auto) 17.2 (10.0-50.0) % Avery % (Auto) 10.5 (2.0-14.0) % Eos % (Auto) 1.2 (0.0-5.0) % Baso % (Auto) 0.4 (0.0-2.0) % Neut # (Auto) 7.52 H (1.40-7.00) K/uL Lymph # (Auto) 1.83 (0.50-3.50) K/uL A[place] # (Auto) 1.12 H (0.00-1.00) K/uL Eos # (Auto) 0.13 (0.00-0.50) K/uL Baso # (Auto) 0.04 (0.00-0.20) K/uL Sodium (136-145) mmol/L Potassium (3.5-5.1) mmol/L Chloride (98-107) mmol/L Carbon Dioxide (21.0-32.0) mmol/L BUN (7-18) mg/dL Creatinine (0.51-1.17) mg/dL Est Cr Clr Drug Dosing mL/min Estimated GFR (MDRD) mL/min Glucose (74-106) mg/dL POC Glucose 175 H 202 H (65-110) mg/dl Uric Acid (2.6-7.2) mg/dL Calcium (8.5-10.1) mg/dL Magnesium (1.8-2.4) mg/dL Creatine Kinase (26-308) U/L Creatine Kinase Index (0.0-2.5) % CK-MB (CK-2) (0.00-3.60) ng/mL Troponin I (0.000-0.056) ng/mL NT-Pro-B Natriuret Pep (0-125) pg/mL 12/21/20 12/21/20 Range/Units 07:10 07:16 WBC (4.0-10.2) K/uL RBC (3.77-5.09) M/uL Hgb (11.7-15.5) g/dL Hct (34.0-46.0) % MCV (84.0-98.0) fL MCH (28.2-33.3) pg MCHC (31.7-36.0) g/dL RDW (11.2-14.1) % Plt Count (150-350) K/uL Neut % (Auto) (45.0-80.0) % Lymph % (Auto) (10.0-50.0) % Avery % (Auto) (2.0-14.0) % Eos % (Auto) (0.0-5.0) % Baso % (Auto) (0.0-2.0) % Neut # (Auto) (1.40-7.00) K/uL Lymph # (Auto) (0.50-3.50) K/uL [place] # (Auto) (0.00-1.00) K/uL Eos # (Auto) (0.00-0.50) K/uL Baso # (Auto) (0.00-0.20) K/uL Sodium 134 L (136-145) mmol/L Potassium 4.5 (3.5-5.1) mmol/L Chloride 99 (98-107) mmol/L Carbon Dioxide 27.5 (21.0-32.0) mmol/L BUN 18 (7-18) mg/dL Creatinine 0.68 (0.51-1.17) mg/dL Est Cr Clr Drug Dosing 50.47 mL/min Estimated GFR (MDRD) > 60 mL/min Glucose 136 H (74-106) mg/dL POC Glucose 133 H (65-110) mg/dl Uric Acid 4.1 (2.6-7.2) mg/dL Calcium 8.7 (8.5-10.1) mg/dL Magnesium 2.0 (1.8-2.4) mg/dL Creatine Kinase 17 L (26-308) U/L Creatine Kinase Index 0.6 (0.0-2.5) % CK-MB (CK-2) 0.10 (0.00-3.60) ng/mL Troponin I 0.030 (0.000-0.056) ng/mL NT-Pro-B Natriuret Pep 1206 H (0-125) pg/mL [facility] Results Last 24 Hours: Microbiology 12/19/20 09:20 Urine Culture - Final Urine, Bladder Escherichia Coli Med Orders - Current: Current Medications Acetaminophen (Tylenol) 650 mg PO Q4H PRN PRN Reason: Pain/Fever Last Admin: 12/21/20 07:47 Dose: 650 mg Documented by: Al Hydroxide/Mg Hydroxide (Mag-Al Plus) 30 ml PO Q8H PRN PRN Reason: Heartburn Last Admin: 12/15/20 00:43 Dose: 30 ml Documented by: Aspirin (Aspirin) 81 mg PO Q48H [facility] Last Admin: 12/20/20 07:34 Dose: 81 mg Documented by: Bisacodyl (Dulcolax) 10 mg RECTAL DAILY PRN PRN Reason: Constipation Cholecalciferol (Vitamin D3) 20 mcg PO DAILY [facility] Last Admin: 12/21/20 07:58 Dose: 20 mcg Documented by: Ciprofloxacin (Ciprofloxacin Hcl) 250 mg PO BID [facility] Stop: 12/26/20 18:00 Last Admin: 12/21/20 07:57 Dose: 250 mg Documented by: Dextrose/Water (Dextrose 50% In Water) 50 ml IV ASDIRECTED PRN PRN Reason: Hypoglycemia Enoxaparin Sodium (Lovenox) 40 mg SUBCUT DAILY [facility] Stop: 01/13/21 08:01 Last Admin: 12/21/20 07:58 Dose: 40 mg Documented by: Escitalopram Oxalate (Lexapro) 20 mg PO DAILY [facility] Furosemide (Lasix) 20 mg PO BIDDIURETIC [facility] Last Admin: 12/21/20 07:54 Dose: 20 mg Documented by: Glucagon (Glucagen) 1 mg IM ASDIRECTED PRN PRN Reason: Hypoglycemia Insulin Glargine (Lantus) 8 unit SUBCUT DAILY [facility] Last Admin: 12/21/20 08:02 Dose: 8 units Documented by: Insulin Human Regular (Humulin R) 0 unit SUBCUT BID [facility]; Protocol Last Admin: 12/21/20 08:03 Dose: Not Given Documented by: Lactobacillus Rhamnosus (Culturelle) 1 cap PO DAILY [facility] Last Admin: 12/21/20 07:56 Dose: 1 cap Documented by: Losartan Potassium (Cozaar) 50 mg PO DAILY [facility] Last Admin: 12/21/20 07:56 Dose: 50 mg Documented by: Magnesium Hydroxide (Milk Of Magnesia) 30 ml PO DAILY PRN PRN Reason: Constipation Last Admin: 12/16/20 07:11 Dose: 30 ml Documented by: Magnesium Oxide (Magnesium Oxide) 400 mg PO DAILY [facility] Last Admin: 12/21/20 07:54 Dose: 400 mg Documented by: Metoprolol Tartrate (Lopressor) 12.5 mg PO Q12HR [facility] Last Admin: 12/21/20 07:55 Dose: 12.5 mg Documented by: Polyethylene Glycol (Miralax) 17 gm PO DAILY [facility] Last Admin: 12/21/20 08:03 Dose: 17 gm Documented by: Potassium Chloride (Klor-Con M20) 20 meq PO DAILY [facility] Last Admin: 12/21/20 07:58 Dose: 20 meq Documented by: Senna/Docusate Sodium (Senna Plus) 2 tab PO BID PRN PRN Reason: Constipation Last Admin: 12/18/20 11:12 Dose: 2 tab Documented by: Spironolactone (Aldactone) 12.5 mg PO BID [facility] Last Admin: 12/21/20 07:56 Dose: 12.5 mg Documented by: Tramadol HCl (Ultram) 50 mg PO Q6H PRN PRN Reason: Pain Last Admin: 12/21/20 07:49 Dose: 50 mg Documented by: Discontinued Medications Dextrose/Water (Dextrose 50% In Water) 50 ml IV ASDIRECTED PRN PRN Reason: Hypoglycemia Furosemide (Lasix) 20 mg PO DAILY@12 [facility] Last Admin: 12/16/20 13:06 Dose: 20 mg Documented by: Furosemide (Lasix) 20 mg PO ONETIME ONE Stop: 12/16/20 19:31 Last Admin: 12/16/20 20:07 Dose: 20 mg Documented by: Glucagon (Glucagen) 1 mg IM ASDIRECTED PRN PRN Reason: Hypoglycemia Losartan Potassium (Cozaar) 25 mg PO DAILY [facility] Non-Formulary Medication (Gallatin [Gallatin]) 500 mg PO DAILY [facility] Non-Formulary Medication (Calcium Carb/D3/Mag Aa Chelate [Coral Calcium Capsule]) 1 each PO DAILY [facility] Non-Formulary Medication (Cinnamon Bark [Cinnamon]) 1,000 mg PO DAILY [facility] Non-Formulary Medication (Cranberry Fruit Extract [Cranberry]) 425 mg PO DAILY [facility] Non-Formulary Medication (Ginkgo Biloba [Ginkgo Biloba]) 40 mg PO DAILY [facility] Non-Formulary Medication (Non-Formulary Medication [Nf Drug]) 1 each PO DAILY [facility] Non-Formulary Medication (Non-Formulary Medication [Nf Drug]) 1 each PO DAILY [facility] - Exam Quality Assessment: Urine Catheter, DVT Prophylaxis (Lovenox). No: Supplemental Oxygen, Central Line/PICC, Skin Breakdown General: Alert, Oriented, Cooperative, No Acute Distress HEENT: Pupils Equal, Pupils Reactive, EOMI, Mucous Membr. Moist/[place], Scleral Icterus Neck: Supple, Trachea Midline, No JVD, No Thyromegaly, Carotid Bruit (Mild bilateral carotid bruits). No: Lymphadenopathy Lungs: Normal Respiratory Effort, Rales (Mild bilateral basilar). No: Rhonchi, Rub, Wheezing Cardiovascular: Regular Rate, Regular Rhythm, No Murmurs. No: Gallops, Rubs GI/Abdominal Exam: Normal Bowel Sounds, Soft, Non-Tender, No Organomegaly, No Distention, No Abnormal Bruit, No Mass, Pelvis Stable. No: Guarding (Female) Exam: Deferred Back Exam: Normal Inspection, Full Range of Motion. No: CVA Tenderness (L), CVA Tenderness (R), Muscle Spasm Extremities: No Pedal Edema, Normal Capillary Refill, Limited Range of Motion (Right hip normal postoperative), Other (No signs of infection from right hip operation site with sutures in place). No: Joint Swelling, Osmar's Sign, Increased Warmth Peripheral Pulses: 2+: Radial (L), Radial (R), Dorsalis Pedis (L), Dorsalis Pedis (R) Skin: Warm, Dry, Intact, Ecchymosis (Lovenox sinus) Wound/Incisions: Healing Well Neurological: No New Focal Deficit, Other (No clinical orthostasis by history) Psy/Mental Status: Anxious (Mild to moderate), Depressed (Moderate). No: Agitated, Hallucinations, Withdrawal Symptoms - Patient Data Lab Results Last 24 hrs: Laboratory Results - last 24 hr 12/20/20 12/20/20 12/21/20 Range/Units 11:19 17:06 07:10 WBC 10.6 H (4.0-10.2) K/uL RBC 2.85 L (3.77-5.09) M/uL Hgb 9.4 L (11.7-15.5) g/dL Hct 29.1 L (34.0-46.0) % MCV 102.1 H (84.0-98.0) fL MCH 33.0 (28.2-33.3) pg MCHC 32.3 (31.7-36.0) g/dL RDW 18.3 H (11.2-14.1) % Plt Count 392 H D (150-350) K/uL Neut % (Auto) 70.7 (45.0-80.0) % Lymph % (Auto) 17.2 (10.0-50.0) % Avery % (Auto) 10.5 (2.0-14.0) % Eos % (Auto) 1.2 (0.0-5.0) % Baso % (Auto) 0.4 (0.0-2.0) % Neut # (Auto) 7.52 H (1.40-7.00) K/uL Lymph # (Auto) 1.83 (0.50-3.50) K/uL Avery # (Auto) 1.12 H (0.00-1.00) K/uL Eos # (Auto) 0.13 (0.00-0.50) K/uL Baso # (Auto) 0.04 (0.00-0.20) K/uL Sodium (136-145) mmol/L Potassium (3.5-5.1) mmol/L Chloride (98-107) mmol/L Carbon Dioxide (21.0-32.0) mmol/L BUN (7-18) mg/dL Creatinine (0.51-1.17) mg/dL Est Cr Clr Drug Dosing mL/min Estimated GFR (MDRD) mL/min Glucose (74-106) mg/dL POC Glucose 175 H 202 H (65-110) mg/dl Uric Acid (2.6-7.2) mg/dL Calcium (8.5-10.1) mg/dL Magnesium (1.8-2.4) mg/dL Creatine Kinase (26-308) U/L Creatine Kinase Index (0.0-2.5) % CK-MB (CK-2) (0.00-3.60) ng/mL Troponin I (0.000-0.056) ng/mL NT-Pro-B Natriuret Pep (0-125) pg/mL 02/19/21 02/19/21 Range/Units 07:10 07:16 WBC (4.0-10.2) K/uL RBC (3.77-5.09) M/uL Hgb (11.7-15.5) g/dL Hct (34.0-46.0) % MCV (84.0-98.0) fL MCH (28.2-33.3) pg MCHC (31.7-36.0) g/dL RDW (11.2-14.1) % Plt Count (150-350) K/uL Neut % (Auto) (45.0-80.0) % Lymph % (Auto) (10.0-50.0) % [place] % (Auto) (2.0-14.0) % Eos % (Auto) (0.0-5.0) % Baso % (Auto) (0.0-2.0) % Neut # (Auto) (1.40-7.00) K/uL Lymph # (Auto) (0.50-3.50) K/uL Avery # (Auto) (0.00-1.00) K/uL Eos # (Auto) (0.00-0.50) K/uL Baso # (Auto) (0.00-0.20) K/uL Sodium 134 L (136-145) mmol/L Potassium 4.5 (3.5-5.1) mmol/L Chloride 99 (98-107) mmol/L Carbon Dioxide 27.5 (21.0-32.0) mmol/L BUN 18 (7-18) mg/dL Creatinine 0.68 (0.51-1.17) mg/dL Est Cr Clr Drug Dosing 50.47 mL/min Estimated GFR (MDRD) > 60 mL/min Glucose 136 H (74-106) mg/dL POC Glucose 133 H (65-110) mg/dl Uric Acid 4.1 (2.6-7.2) mg/dL Calcium 8.7 (8.5-10.1) mg/dL Magnesium 2.0 (1.8-2.4) mg/dL Creatine Kinase 17 L (26-308) U/L Creatine Kinase Index 0.6 (0.0-2.5) % CK-MB (CK-2) 0.10 (0.00-3.60) ng/mL Troponin I 0.030 (0.000-0.056) ng/mL NT-Pro-B Natriuret Pep 1206 H (0-125) pg/mL Result Diagrams: 12/21/20 07:10 12/21/20 07:10 Guillermo Results Last 24 hrs: Microbiology 12/19/20 09:20 Urine Culture - Final Urine, Bladder Escherichia Coli Sepsis Event Note - Evaluation Sepsis Screening Result: No Definite Risk - Focused Exam Vital Signs: Vital Signs Temp Pulse Pulse Resp BP BP Pulse Ox 12/21/20 08:00 36.9 C 68 20 138/60 97 12/21/20 07:56 138/60 12/21/20 07:55 68 138/60 - Problem List & Annotations (1) Closed right hip fracture SNOMED Code(s): 139550684 Code(s): S72.001A - FRACTURE OF UNSP PART OF NECK OF RIGHT FEMUR, INIT Status: Acute Priority: High Current Visit: No Onset Date: 12/09/20 Qualifiers: Encounter type: subsequent encounter Annotation/Comment:: Right hip fracture from fall in garage at home. ORIF at [facility]. Here for PT/OT, which is progressing very slowly. The patient still wants to go home, however has difficulty standing at this time. Compliance with PT and OT was encouraged, which the patient sometimes refuses. (2) CHF (congestive heart failure) SNOMED Code(s): 31299009 Code(s): I50.9 - HEART FAILURE, UNSPECIFIED Status: Acute Priority: High Current Visit: Yes Qualifiers: Heart failure type: diastolic Heart failure chronicity: acute on chronic Qualified Code(s): I50.33 - Acute on chronic diastolic (congestive) heart failure Annotation/Comment:: Dependent edema significant improved after increase of previous oral Lasix therapy. Note addition of spironolactone both for treatment of her hypertension and CHF. No chest pain or anginal type symptoms. Note current pacemaker. Cardiac enzymes are normal with exception of improved persistent elevated BNP of 1206 improved from previous 4766. Continue current medical therapy. Note mild secondary changes of patient's troponin I, which is still normal, secondary to her CHF. (3) Postoperative anemia SNOMED Code(s): 251799232, 067202250 Code(s): D64.9 - ANEMIA, UNSPECIFIED Status: Acute Priority: Medium Current Visit: Yes Onset Date: ~12/14/20 Annotation/Comment:: Only small improvement of her postoperative anemia with hemoglobin of 9.4 comparison to previous 9.2. Initiate iron sulfate oral therapy with further work-up including iron studies, etc. depending on her clinical course. No evidence of acute bleeding at this time despite her current prophylactic subcu Lovenox therapy. (4) UTI (urinary tract infection) SNOMED Code(s): 98032308 Code(s): N39.0 - URINARY TRACT INFECTION, SITE NOT SPECIFIED Status: Acute Priority: Medium Current Visit: Yes Onset Date: 12/19/20 Qualifiers: Urinary tract infection type: acute cystitis Hematuria presence: without hematuria Qualified Code(s): N30.00 - Acute cystitis without hematuria Annotation/Comment:: Urine culture and sensitivity report does show sensitivity to Cipro. 1 week of oral Cipro therapy will be conducted with follow-up UA and culture and sensitivity already ordered. Note postoperative Lugo catheter placement, which will be continued until the patient is more ambulatory per the request from orthopedic surgery. Mild leukocytosis today likely secondary to this infection with no direct evidence of pneumonia by clinical exam despite chest x-ray findings as above. (5) Mixed anxiety and depressive disorder SNOMED Code(s): 924824915 Code(s): F41.8 - OTHER SPECIFIED ANXIETY DISORDERS Status: Acute Priority: High Current Visit: Yes Onset Date: ~12/21/20 Annotation/Comment:: Nursing staff has noted progressive anxiety and depression, which the patient does not wish to acknowledge. Initiate Lexapro therapy as chronic pain control and treatment for her emotional status. Continue to observe closely at time of discharge from swing bed care. (6) Osteoarthritis SNOMED Code(s): 132488407 Code(s): M19.90 - UNSPECIFIED OSTEOARTHRITIS, UNSPECIFIED SITE Status: Chronic Priority: Medium Current Visit: Yes Qualifiers: Osteoarthritis location: multiple joints Osteoarthritis type: primary Qualified Code(s): M89.49 - Other hypertrophic osteoarthropathy, multiple sites Annotation/Comment:: Otherwise stable by history. Patient is still needing chronic Ultram therapy for her recent right hip surgery especially prior to PT/OT. (7) Diabetes mellitus SNOMED Code(s): 30487773 Code(s): E11.9 - TYPE 2 DIABETES MELLITUS WITHOUT COMPLICATIONS Status: Chronic Priority: Medium Current Visit: Yes Annotation/Comment:: Continue sliding scale with verbal Accu-Cheks at this time. Started on insulin therapy by Santhosh. Continue accuchecks and adjust doses as indicated. Patient receiv ed diabetic consult while in [place]. (8) HTN, Benign hypertension SNOMED Code(s): 24815348 Code(s): I10 - ESSENTIAL (PRIMARY) HYPERTENSION Status: Chronic Priority: High Current Visit: Yes Onset Date: ~12/14/20 Annotation/Comment:: Blood pressure much improved after increase of her Lasix therapy and initiation of low-dose spironolactone as above. Continue to observe her potassium status clos ari secondary to her history of renal insufficiency, etc. Patient was previously not on any antihypertensives until her recent fall due to her refusal to take them in the past. Antihypertensive therapy initiated by Santhosh with medication adjustments in this facility as above. Note that patient has been somewhat noncompliant with her routine preventative health care and does not have a local primary provider. Care management is reviewing this at this time. (9) Coronary artery disease SNOMED Code(s): 13317475 Code(s): I25.10 - ATHSCL HEART DISEASE OF [place] CORONARY ARTERY W/O ANG PCTRS Status: Acute Current Visit: Yes Qualifiers: Coronary Disease-Associated Artery/Lesion type: [place] artery [place] vs. transplanted heart: [place] heart Associated angina: without angina Qualified Code(s): I25.10 - Atherosclerotic heart disease of [place] coronary artery without angina pectoris Annotation/Comment:: As above (10) Chronic kidney disease SNOMED Code(s): 513321921 Code(s): N18.9 - CHRONIC KIDNEY DISEASE, UNSPECIFIED Status: Chronic Priority: Low Current Visit: Yes Qualifiers: Chronic kidney disease stage: stage 3 (moderate) Annotation/Comment:: Stable during her swing bed care. (11) Hyponatremia SNOMED Code(s): 41934710 Code(s): E87.1 - HYPO-OSMOLALITY AND HYPONATREMIA Status: Acute Priority: High Current Visit: Yes Onset Date: 12/21/20 Annotation/Comment:: Mild hyponatremia likely secondary to CHF. Continue to observe for now. - Problem List Review Problem List Initiated/Reviewed/Updated: Yes - My Orders Last 24 Hours: My Active Orders 12/21/20 10:00 Escitalopram [Lexapro] 20 mg PO DAILY 12/27/20 05:11 CULTURE URINE [RM] Routine URINALYSIS W/MICROSCOPIC [UA W/MICROSCOPIC] [URIN] Routine - Assessment Assessment:: As above - Plan Plan:: as above. Extensive precautions were given to the patient, who is in agreement with the treatment plan. Continue PT/OT with the patient wishing to go home, however this is difficult secondary to her inability to barely stand at this time. Case care management consultation is in effect.
[2020-12-21] MEDS: Escitalopram 20 MG Tab PO SCH (11:43)
[2020-12-21] MEDS: Ferrous Sulfate 325 MG Tab PO SCH (17:47)
[2020-12-22] MEDS: Acetaminophen 325 MG Tab PO PRN ×3 (00:27→19:31)
[2020-12-22] MEDS: Ferrous Sulfate 325 MG Tab PO SCH (08:00)
[2020-12-22] MEDS: Aspirin 81 MG Tab.Chew PO SCH (08:01)
[2020-12-22] MEDS: Ciprofloxacin 500 MG Tab PO SCH ×2 (08:01→19:30)
[2020-12-22] MEDS: Spironolactone 25 MG Tab PO SCH ×2 (08:01→19:29)
[2020-12-22] MEDS: Losartan 50 MG Tab PO SCH (08:02)
[2020-12-22] MEDS: Lactobacillus Rhamnosus GG (Probiotic) Cap PO SCH (08:03)
[2020-12-22] MEDS: Furosemide 20 MG Tab PO SCH ×2 (08:03→11:52)
[2020-12-22] MEDS: Metoprolol Tartrate 25 MG Tab PO SCH ×2 (08:03→19:28)
[2020-12-22] MEDS: Potassium Chloride 10 MEQ Tab.ER PO SCH (08:03)
[2020-12-22] MEDS: Enoxaparin 40 MG/0.4 ML Syringe SUBCUT SCH (08:04)
[2020-12-22] MEDS: Cholecalciferol (Vitamin D3) 10 MCG Tab PO SCH (08:05)
[2020-12-22] MEDS: Escitalopram 20 MG Tab PO SCH (08:05)
[2020-12-22] MEDS: Polyethylene Glycol 3350 Powder 17 GM Packet PO SCH (08:05)
[2020-12-22] MEDS: Magnesium Oxide 400 MG Tab PO SCH (08:05)
[2020-12-22] MEDS: Insulin Glarg,Human.Rec.Analog 100 Unit/ML SUBCUT SCH (08:07)
[2020-12-22] MEDS: Insulin Regular, Human 100 Units/ML 3 ML Vial SUBCUT SCH ×2 (08:08→18:17)
[2020-12-22] MEDS: Ondansetron 4 MG Tab.DIS PO PRN (17:38)
[2020-12-23] MEDS: Ondansetron 4 MG Tab.DIS PO PRN (09:38)
[2020-12-23] MEDS: Losartan 50 MG Tab PO SCH (09:38)
[2020-12-23] MEDS: Ciprofloxacin 500 MG Tab PO SCH ×2 (09:38→17:37)
[2020-12-23] MEDS: Spironolactone 25 MG Tab PO SCH ×2 (09:38→17:37)
[2020-12-23] MEDS: Enoxaparin 40 MG/0.4 ML Syringe SUBCUT SCH (09:39)
[2020-12-23] MEDS: traMADol 50 MG Tab PO PRN (09:39)
[2020-12-23] MEDS: Furosemide 20 MG Tab PO SCH ×2 (09:39→12:59)
[2020-12-23] MEDS: Lactobacillus Rhamnosus GG (Probiotic) Cap PO SCH (10:02)
[2020-12-23] MEDS: Insulin Regular, Human 100 Units/ML 3 ML Vial SUBCUT SCH ×2 (10:02→17:37)
[2020-12-23] MEDS: Potassium Chloride 10 MEQ Tab.ER PO SCH (10:03)
[2020-12-23] MEDS: Insulin Glarg,Human.Rec.Analog 100 Unit/ML SUBCUT SCH (10:03)
[2020-12-23] MEDS: Escitalopram 20 MG Tab PO SCH (10:03)
[2020-12-23] MEDS: Metoprolol Tartrate 25 MG Tab PO SCH ×2 (10:03→19:12)
[2020-12-23] MEDS: Polyethylene Glycol 3350 Powder 17 GM Packet PO SCH (10:04)
[2020-12-23] MEDS: Magnesium Oxide 400 MG Tab PO SCH (10:04)
[2020-12-23] MEDS: Cholecalciferol (Vitamin D3) 10 MCG Tab PO SCH (10:04)
--- NOTE | 2020-12-23 13:23 | PCM.PN ---
- General Info Date of Service: 12/23/20 Admission Dx/Problem (Free Text): S/P surgical fixation right hip fracture Abdominal pain Subjective Update: Patient is a swing bed patient status post hip fracture and replacement. Yesterday and today has been complaining of some nausea. She was started on Zofran as needed yesterday. This morning was complaining of some diffuse abdominal pain. This afternoon she denies any abdominal pain or nausea. Overall is doing fine. No fever or chills. No vomiting. She has had decreased p.o. intake the past 2 days. - Review of Systems General: Denies: Fever Pulmonary: Denies: Shortness of Breath, Cough Cardiovascular: Denies: Chest Pain, Palpitations Gastrointestinal: Reports: Abdominal Pain, Nausea. Denies: Constipation, Diarrhea, Vomiting Genitourinary: Denies: Dysuria, Frequency, Urgency - Patient Data Vitals - Most Recent: Last Vital Signs Temp 37.1 C 12/23/20 08:00 Pulse 72 12/23/20 08:00 Resp 16 12/23/20 08:00 BP 128/74 12/23/20 09:38 Pulse Ox 97 12/23/20 08:00 Weight - Most Recent: 63.73 kg I&O - Last 24 Hours: Intake & Output 12/22/20 12/23/20 12/23/20 22:59 06:59 14:59 Intake Total 800 120 Output Total 2200 375 Balance -1400 -255 Lab Results Last 24 Hours: Laboratory Results - last 24 hr 12/22/20 12/22/20 12/23/20 Range/Units 07:13 17:58 07:42 POC Glucose 150 H 193 H 151 H (65-110) mg/dl Med Orders - Current: Current Medications Acetaminophen (Tylenol) 650 mg PO Q4H PRN PRN Reason: Pain/Fever Last Admin: 12/22/20 19:31 Dose: 650 mg Documented by: Al Hydroxide/Mg Hydroxide (Mag-Al Plus) 30 ml PO Q8H PRN PRN Reason: Heartburn Last Admin: 12/15/20 00:43 Dose: 30 ml Documented by: Aspirin (Aspirin) 81 mg PO Q48H [facility] Last Admin: 12/22/20 08:01 Dose: 81 mg Documented by: Bisacodyl (Dulcolax) 10 mg RECTAL DAILY PRN PRN Reason: Constipation Cholecalciferol (Vitamin D3) 20 mcg PO DAILY [facility] Last Admin: 12/23/20 10:04 Dose: Not Given Documented by: Ciprofloxacin (Ciprofloxacin Hcl) 250 mg PO BID [facility] Stop: 12/26/20 18:00 Last Admin: 12/23/20 09:38 Dose: 250 mg Documented by: Dextrose/Water (Dextrose 50% In Water) 50 ml IV ASDIRECTED PRN PRN Reason: Hypoglycemia Enoxaparin Sodium (Lovenox) 40 mg SUBCUT DAILY [facility] Stop: 01/13/21 08:01 Last Admin: 12/23/20 09:39 Dose: 40 mg Documented by: Escitalopram Oxalate (Lexapro) 20 mg PO DAILY [facility] Last Admin: 12/23/20 10:03 Dose: Not Given Documented by: Furosemide (Lasix) 20 mg PO BIDDIURETIC [facility] Last Admin: 12/23/20 12:59 Dose: Not Given Documented by: Glucagon (Glucagen) 1 mg IM ASDIRECTED PRN PRN Reason: Hypoglycemia Insulin Glargine (Lantus) 8 unit SUBCUT DAILY [facility] Last Admin: 12/23/20 10:03 Dose: Not Given Documented by: Insulin Human Regular (Humulin R) 0 unit SUBCUT BID [facility]; Protocol Last Admin: 12/23/20 10:02 Dose: Not Given Documented by: Lactobacillus Rhamnosus (Culturelle) 1 cap PO DAILY [facility] Last Admin: 12/23/20 10:02 Dose: Not Given Documented by: Losartan Potassium (Cozaar) 50 mg PO DAILY [facility] Last Admin: 12/23/20 09:38 Dose: 50 mg Documented by: Magnesium Hydroxide (Milk Of Magnesia) 30 ml PO DAILY PRN PRN Reason: Constipation Last Admin: 12/16/20 07:11 Dose: 30 ml Documented by: Magnesium Oxide (Magnesium Oxide) 400 mg PO DAILY [facility] Last Admin: 12/23/20 10:04 Dose: Not Given Documented by: Metoprolol Tartrate (Lopressor) 12.5 mg PO Q12HR [facility] Last Admin: 12/23/20 10:03 Dose: Not Given Documented by: Ondansetron HCl (Zofran Odt) 4 mg PO Q6H PRN PRN Reason: Nausea/Vomiting Last Admin: 12/23/20 09:38 Dose: 4 mg Documented by: Polyethylene Glycol (Miralax) 17 gm PO DAILY [facility] Last Admin: 12/23/20 10:04 Dose: Not Given Documented by: Potassium Chloride (Klor-Con 10) 10 meq PO DAILY [facility] Last Admin: 12/23/20 10:03 Dose: Not Given Documented by: Senna/Docusate Sodium (Senna Plus) 2 tab PO BID PRN PRN Reason: Constipation Last Admin: 12/18/20 11:12 Dose: 2 tab Documented by: Spironolactone (Aldactone) 12.5 mg PO BID [facility] Last Admin: 12/23/20 09:38 Dose: 12.5 mg Documented by: Tramadol HCl (Ultram) 50 mg PO Q6H PRN PRN Reason: Pain Last Admin: 12/23/20 09:39 Dose: 50 mg Documented by: Discontinued Medications Dextrose/Water (Dextrose 50% In Water) 50 ml IV ASDIRECTED PRN PRN Reason: Hypoglycemia Ferrous Sulfate (Ferrous Sulfate) 325 mg PO BIDMEALS [facility] Last Admin: 12/22/20 08:00 Dose: 325 mg Documented by: Furosemide (Lasix) 20 mg PO DAILY@12 [facility] Last Admin: 12/16/20 13:06 Dose: 20 mg Documented by: Furosemide (Lasix) 20 mg PO ONETIME ONE Stop: 12/16/20 19:31 Last Admin: 12/16/20 20:07 Dose: 20 mg Documented by: Glucagon (Glucagen) 1 mg IM ASDIRECTED PRN PRN Reason: Hypoglycemia Losartan Potassium (Cozaar) 25 mg PO DAILY [facility] Non-Formulary Medication ([place] [Chesterfield]) 500 mg PO DAILY [facility] Non-Formulary Medication (Calcium Carb/D3/Mag Aa Chelate [Coral Calcium Capsule]) 1 each PO DAILY [facility] Non-Formulary Medication (Cinnamon Bark [Cinnamon]) 1,000 mg PO DAILY [facility] Non-Formulary Medication (Cranberry Fruit Extract [Cranberry]) 425 mg PO DAILY [facility] Non-Formulary Medication (Ginkgo Biloba [Ginkgo Biloba]) 40 mg PO DAILY [facility] Non-Formulary Medication (Non-Formulary Medication [Nf Drug]) 1 each PO DAILY [facility] Non-Formulary Medication (Non-Formulary Medication [Nf Drug]) 1 each PO DAILY [facility] Potassium Chloride (Klor-Con M20) 20 meq PO DAILY [facility] Last Admin: 12/21/20 07:58 Dose: 20 meq Documented by: - Exam General: Alert, Oriented Lungs: Clear to Auscultation, Normal Respiratory Effort Cardiovascular: Regular Rate, Regular Rhythm, No Murmurs GI/Abdominal Exam: Normal Bowel Sounds, Soft, No Distention, No Mass, Tender (Mild diffuse tenderness slightly more severe in the epigastrium.) Physical Findings Comments:: X-ray of the abdomen shows Josey of air in the colon. No free air. No air- fluid levels. - Patient Data Lab Results Last 24 hrs: Laboratory Results - last 24 hr 12/22/20 12/22/20 12/23/20 Range/Units 07:13 17:58 07:42 POC Glucose 150 H 193 H 151 H (65-110) mg/dl Result Diagrams: 12/21/20 07:10 12/21/20 07:10 Sepsis Event Note - Evaluation Sepsis Screening Result: No Definite Risk - Focused Exam Vital Signs: Vital Signs Temp Pulse Resp BP BP Pulse Ox 12/23/20 09:38 128/74 12/23/20 08:00 37.1 C 72 16 128/74 97 - Problem List & Annotations (1) Abdominal pain SNOMED Code(s): 54322998 Code(s): R10.9 - UNSPECIFIED ABDOMINAL PAIN Status: Acute Current Visit: Yes (2) Nausea SNOMED Code(s): 420442635 Code(s): R11.0 - NAUSEA Status: Acute Current Visit: Yes - Problem List Review Problem List Initiated/Reviewed/Updated: Yes - My Orders Last 24 Hours: My Active Orders 12/22/20 17:19 Ondansetron [Zofran ODT] 4 mg PO Q6H PRN 12/23/20 11:59 Abdomen 2V AP Flat Upright [CR] Routine - Assessment Assessment:: As above - Plan Plan:: Continue with the Zofran as needed. Add Gas-X as needed. Recheck tomorrow.
[2020-12-23] MEDS ORDERED: Simethicone 80 MG Tab.Chew PO PRN (13:46)
[2020-12-23] MEDS: Aluminum Hydroxide/Magnesium Hydroxide/Simethicone Susp 30 ML Cup PO PRN (14:07)
[2020-12-23] MEDS: Acetaminophen 325 MG Tab PO PRN ×2 (14:12→19:13)
[2020-12-24] MEDS: Magnesium Hydroxide 400 MG/5 ML Susp 30 ML Cup PO PRN (07:24)
[2020-12-24] MEDS: Polyethylene Glycol 3350 Powder 17 GM Packet PO SCH (07:24)
[2020-12-24] MEDS: traMADol 50 MG Tab PO PRN ×2 (07:28→17:17)
[2020-12-24] MEDS: Acetaminophen 325 MG Tab PO PRN ×2 (07:28→12:03)
[2020-12-24] MEDS: Spironolactone 25 MG Tab PO SCH ×2 (07:29→17:17)
[2020-12-24] MEDS: Ciprofloxacin 500 MG Tab PO SCH ×2 (07:29→17:17)
[2020-12-24] MEDS: Losartan 50 MG Tab PO SCH (07:29)
[2020-12-24] MEDS: Metoprolol Tartrate 25 MG Tab PO SCH ×2 (07:30→20:57)
[2020-12-24] MEDS: Furosemide 20 MG Tab PO SCH ×2 (07:30→12:00)
[2020-12-24] MEDS: Insulin Glarg,Human.Rec.Analog 100 Unit/ML SUBCUT SCH (07:38)
[2020-12-24] MEDS: Enoxaparin 40 MG/0.4 ML Syringe SUBCUT SCH (07:42)
[2020-12-24] MEDS: Insulin Regular, Human 100 Units/ML 3 ML Vial SUBCUT SCH ×2 (07:45→17:11)
[2020-12-24] MEDS: Escitalopram 20 MG Tab PO SCH ×2 (08:45→12:00)
[2020-12-24] MEDS: Cholecalciferol (Vitamin D3) 10 MCG Tab PO SCH ×2 (08:45→12:00)
[2020-12-24] MEDS: Lactobacillus Rhamnosus GG (Probiotic) Cap PO SCH ×2 (08:45→12:00)
[2020-12-24] MEDS: Potassium Chloride 10 MEQ Tab.ER PO SCH ×2 (08:45→11:59)
[2020-12-24] MEDS: Aspirin 81 MG Tab.Chew PO SCH ×2 (08:45→11:59)
[2020-12-24] MEDS: Magnesium Oxide 400 MG Tab PO SCH ×2 (08:45→11:59)
--- NOTE | 2020-12-24 16:00 | PCM.SN.2 ---
- Free Text/Narrative Note: Note patient did have an excellent bowel movement earlier this morning. Previous abdominal x-ray report from 12/23/2020 did indicate a possible postoperative ileus, however not clinically significant at this time. Her p.m. Accu-Cheks have been somewhat elevated with her Lantus to be increased to 12 units daily with continuation of twice daily Humalog sliding scale.
[2020-12-25] MEDS: Polyethylene Glycol 3350 Powder 17 GM Packet PO SCH (08:08)
[2020-12-25] MEDS: Insulin Glarg,Human.Rec.Analog 100 Unit/ML SUBCUT SCH (08:12)
[2020-12-25] MEDS: Insulin Regular, Human 100 Units/ML 3 ML Vial SUBCUT SCH ×2 (08:12→17:19)
[2020-12-25] MEDS: Acetaminophen 325 MG Tab PO PRN (08:13)
[2020-12-25] MEDS: Enoxaparin 40 MG/0.4 ML Syringe SUBCUT SCH (08:13)
[2020-12-25] MEDS: Ciprofloxacin 500 MG Tab PO SCH ×2 (08:13→17:18)
[2020-12-25] MEDS ORDERED: Nystatin Topical Powder 15 GM Bottle TOP SCH (10:00)
[2020-12-25] MEDS: Furosemide 20 MG Tab PO SCH ×2 (10:26→12:12)
[2020-12-25] MEDS: Spironolactone 25 MG Tab PO SCH ×2 (10:26→17:18)
[2020-12-25] MEDS: Losartan 50 MG Tab PO SCH (10:26)
[2020-12-25] MEDS: Metoprolol Tartrate 25 MG Tab PO SCH ×2 (10:26→19:39)
[2020-12-25] MEDS: Potassium Chloride 10 MEQ Tab.ER PO SCH (12:11)
[2020-12-25] MEDS: Cholecalciferol (Vitamin D3) 10 MCG Tab PO SCH (12:11)
[2020-12-25] MEDS: Lactobacillus Rhamnosus GG (Probiotic) Cap PO SCH (12:12)
[2020-12-25] MEDS: Magnesium Oxide 400 MG Tab PO SCH (12:12)
[2020-12-25] MEDS: Escitalopram 20 MG Tab PO SCH (12:12)
[2020-12-25] MEDS: traMADol 50 MG Tab PO PRN (12:54)
[2020-12-25] MEDS: Nystatin Topical Powder 15 GM Bottle TOP SCH (21:19)
[2020-12-26] MEDS: Acetaminophen 325 MG Tab PO PRN (07:23)
[2020-12-26] MEDS: Polyethylene Glycol 3350 Powder 17 GM Packet PO SCH (07:23)
[2020-12-26] MEDS: Metoprolol Tartrate 25 MG Tab PO SCH ×2 (07:24→19:54)
[2020-12-26] MEDS: Losartan 50 MG Tab PO SCH (07:24)
[2020-12-26] MEDS: Enoxaparin 40 MG/0.4 ML Syringe SUBCUT SCH (07:24)
[2020-12-26] MEDS: Ciprofloxacin 500 MG Tab PO SCH ×2 (07:24→17:10)
[2020-12-26] MEDS: Insulin Glarg,Human.Rec.Analog 100 Unit/ML SUBCUT SCH (07:25)
[2020-12-26] MEDS: Insulin Regular, Human 100 Units/ML 3 ML Vial SUBCUT SCH ×2 (07:25→17:10)
[2020-12-26] MEDS: Furosemide 20 MG Tab PO SCH ×2 (07:25→11:17)
[2020-12-26] MEDS: Spironolactone 25 MG Tab PO SCH ×2 (07:25→17:10)
[2020-12-26] MEDS: Nystatin Topical Powder 15 GM Bottle TOP SCH ×2 (07:26→19:53)
[2020-12-26] MEDS: Escitalopram 20 MG Tab PO SCH (11:17)
[2020-12-26] MEDS: Lactobacillus Rhamnosus GG (Probiotic) Cap PO SCH (11:17)
[2020-12-26] MEDS: Potassium Chloride 10 MEQ Tab.ER PO SCH (11:17)
[2020-12-26] MEDS: Cholecalciferol (Vitamin D3) 10 MCG Tab PO SCH (11:17)
[2020-12-26] MEDS: Magnesium Oxide 400 MG Tab PO SCH (11:17)
[2020-12-26] MEDS: Aspirin 81 MG Tab.Chew PO SCH (11:17)
[2020-12-26] MEDS: traMADol 50 MG Tab PO PRN (13:31)
[2020-12-27] MEDS: Enoxaparin 40 MG/0.4 ML Syringe SUBCUT SCH (08:10)
[2020-12-27] MEDS: Polyethylene Glycol 3350 Powder 17 GM Packet PO SCH (08:10)
[2020-12-27] MEDS: Furosemide 20 MG Tab PO SCH ×2 (08:11→11:20)
[2020-12-27] MEDS: Spironolactone 25 MG Tab PO SCH ×2 (08:11→17:26)
[2020-12-27] MEDS: Losartan 50 MG Tab PO SCH (08:12)
[2020-12-27] MEDS: Metoprolol Tartrate 25 MG Tab PO SCH ×2 (08:12→20:49)
[2020-12-27] MEDS: Insulin Regular, Human 100 Units/ML 3 ML Vial SUBCUT SCH ×2 (08:19→17:44)
[2020-12-27] MEDS: Nystatin Topical Powder 15 GM Bottle TOP SCH ×2 (08:20→20:50)
[2020-12-27 08:23] LABS: CHLORIDE,CL 98 mmol/L (98-107); SODIUM,NA 133 mmol/L (136-145)
[2020-12-27] MEDS: Insulin Glarg,Human.Rec.Analog 100 Unit/ML SUBCUT SCH (08:27)
[2020-12-27] MEDS: Escitalopram 20 MG Tab PO SCH (11:20)
[2020-12-27] MEDS: Cholecalciferol (Vitamin D3) 10 MCG Tab PO SCH (11:20)
[2020-12-27] MEDS: Magnesium Oxide 400 MG Tab PO SCH (11:21)
[2020-12-27] MEDS: Potassium Chloride 10 MEQ Tab.ER PO SCH (11:22)
[2020-12-27] MEDS: Lactobacillus Rhamnosus GG (Probiotic) Cap PO SCH (11:23)
[2020-12-27] MEDS ORDERED: Sodium Chloride 0.9% 10 ML Syringe FLUSH PRN (12:11)
[2020-12-27] MEDS ORDERED: Sodium Chloride 0.9% 500 ML IV SCH (12:15)
--- NOTE | 2020-12-27 14:22 | PCM.PN ---
<Raven Irwin - Last Filed: 12/29/20 12:54> - General Info Date of Service: 12/27/20 Admission Dx/Problem (Free Text): S/P surgical fixation right hip fracture Subjective Update: Patient is an 89 year old female that is on swing bed status post hip fracture and replacement. She is here for rehab and she is hoping to eventually be discharged back for her own home. She has asked for me to take over her care. Today she offers no complaints and says she is doing well but states, "I'm not ready to run any races." She thinks that her fluid intake has been adequate and she never really has had a great appetite so this is not new. Drinks ensure like she did at home prior to the injury. Her sons are planning on coming for a visit today/tomorrow so she is excited about that. Functional Status: Reports: Pain Controlled - Review of Systems General: Reports: No Symptoms HEENT: Reports: No Symptoms Pulmonary: Reports: No Symptoms Cardiovascular: Reports: No Symptoms Gastrointestinal: Reports: Decreased Appetite Genitourinary: Reports: No Symptoms, Other (vega catheter in place) Musculoskeletal: Reports: Other (s/p right hip fracture and replacement) Skin: Reports: No Symptoms Neurological: Reports: Weakness, Other (using lasha lift currently) Psychiatric: Reports: Depression - Patient Data Vitals - Most Recent: Last Vital Signs Temp 97.2 F 12/27/20 08:00 Pulse 60 12/27/20 08:12 Resp 16 12/27/20 08:00 BP 155/99 H 12/27/20 08:12 Pulse Ox 99 12/27/20 08:00 Weight - Most Recent: 66.723 kg I&O - Last 24 Hours: Intake & Output 12/26/20 12/27/20 12/27/20 22:59 06:59 14:59 Intake Total 120 480 Output Total 350 700 Balance -230 -700 480 Lab Results Last 24 Hours: Laboratory Results - last 24 hr 12/26/20 12/26/20 12/27/20 Range/Units 07:22 16:59 07:15 WBC 6.2 (4.0-10.2) K/uL RBC 3.04 L (3.77-5.09) M/uL Hgb 9.9 L (11.7-15.5) g/dL Hct 30.7 L (34.0-46.0) % MCV 101.0 H (84.0-98.0) fL MCH 32.6 (28.2-33.3) pg MCHC 32.2 (31.7-36.0) g/dL RDW 17.2 H (11.2-14.1) % Plt Count 482 H D (150-350) K/uL Neut % (Auto) 58.4 (45.0-80.0) % Lymph % (Auto) 26.1 (10.0-50.0) % [place] % (Auto) 12.7 (2.0-14.0) % Eos % (Auto) 2.2 (0.0-5.0) % Baso % (Auto) 0.6 (0.0-2.0) % Neut # (Auto) 3.64 (1.40-7.00) K/uL Lymph # (Auto) 1.63 (0.50-3.50) K/uL [place] # (Auto) 0.79 (0.00-1.00) K/uL Eos # (Auto) 0.14 (0.00-0.50) K/uL Baso # (Auto) 0.04 (0.00-0.20) K/uL Sodium (136-145) mmol/L Potassium (3.5-5.1) mmol/L Chloride (98-107) mmol/L Carbon Dioxide (21.0-32.0) mmol/L BUN (7-18) mg/dL Creatinine (0.51-1.17) mg/dL Est Cr Clr Drug Dosing mL/min Estimated GFR (MDRD) mL/min Glucose (70-99) mg/dL POC Glucose 104 230 H (65-110) mg/dl Calcium (8.5-10.1) mg/dL Iron (50-175) ug/dL TIBC (250-450) ug/dL % Saturation Ferritin (8-388) ng/mL Total Bilirubin (0.2-1.0) mg/dL AST (15-37) U/L ALT (12-78) U/L Alkaline Phosphatase (46-116) IU/L Troponin I (0.000-0.056) ng/mL NT-Pro-B Natriuret Pep (0-125) pg/mL Total Protein (6.4-8.2) g/dL Albumin (3.4-5.0) g/dL Vitamin B12 (193-986) pg/mL Folate (8.6-58.9) ng/mL TSH, Ultra Sensitive (0.358-3.740) mIU/mL Specimen Type Urine Color Urine Appearance Urine pH (5.0-9.0) Ur Specific [place] (1.005-1.030) Urine Protein (NEGATIVE) mg/dL Urine Glucose (UA) (NEGATIVE) mg/dL Urine Ketones (NEGATIVE) mg/dL Urine Occult Blood (NEGATIVE) Urine Nitrite (NEGATIVE) Urine Bilirubin (NEGATIVE) Urine Urobilinogen (0.2-1.0) E.U./dL Ur Leukocyte Esterase (NEGATIVE) Urine RBC /HPF Urine WBC /HPF Ur Epithelial Cells /LPF Amorphous Sediment (0/HPF) /HPF 12/27/20 12/27/20 12/27/20 Range/Units 07:15 07:15 07:46 WBC (4.0-10.2) K/uL RBC (3.77-5.09) M/uL Hgb (11.7-15.5) g/dL Hct (34.0-46.0) % MCV (84.0-98.0) fL MCH (28.2-33.3) pg MCHC (31.7-36.0) g/dL RDW (11.2-14.1) % Plt Count (150-350) K/uL Neut % (Auto) (45.0-80.0) % Lymph % (Auto) (10.0-50.0) % [place] % (Auto) (2.0-14.0) % Eos % (Auto) (0.0-5.0) % Baso % (Auto) (0.0-2.0) % Neut # (Auto) (1.40-7.00) K/uL Lymph # (Auto) (0.50-3.50) K/uL [place] # (Auto) (0.00-1.00) K/uL Eos # (Auto) (0.00-0.50) K/uL Baso # (Auto) (0.00-0.20) K/uL Sodium 133 L (136-145) mmol/L Potassium 4.6 (3.5-5.1) mmol/L Chloride 98 (98-107) mmol/L Carbon Dioxide 29.3 (21.0-32.0) mmol/L BUN 19 H (7-18) mg/dL Creatinine 0.67 (0.51-1.17) mg/dL Est Cr Clr Drug Dosing 51.22 mL/min Estimated GFR (MDRD) > 60 mL/min Glucose 99 (70-99) mg/dL POC Glucose 103 (65-110) mg/dl Calcium 8.6 (8.5-10.1) mg/dL Iron 68 (50-175) ug/dL TIBC 219 L (250-450) ug/dL % Saturation 31.29696 Ferritin 1709 H (8-388) ng/mL Total Bilirubin 0.8 (0.2-1.0) mg/dL AST 34 (15-37) U/L ALT 33 (12-78) U/L Alkaline Phosphatase 147 H (46-116) IU/L Troponin I 0.033 (0.000-0.056) ng/mL NT-Pro-B Natriuret Pep 820 H (0-125) pg/mL Total Protein 6.0 L (6.4-8.2) g/dL Albumin 2.6 L (3.4-5.0) g/dL Vitamin B12 1275 H (193-986) pg/mL Folate 19.9 (8.6-58.9) ng/mL TSH, Ultra Sensitive 1.940 (0.358-3.740) mIU/mL Specimen Type Urine Color Urine Appearance Urine pH (5.0-9.0) Ur Specific [place] (1.005-1.030) Urine Protein (NEGATIVE) mg/dL Urine Glucose (UA) (NEGATIVE) mg/dL Urine Ketones (NEGATIVE) mg/dL Urine Occult Blood (NEGATIVE) Urine Nitrite (NEGATIVE) Urine Bilirubin (NEGATIVE) Urine Urobilinogen (0.2-1.0) E.U./dL Ur Leukocyte Esterase (NEGATIVE) Urine RBC /HPF Urine WBC /HPF Ur Epithelial Cells /LPF Amorphous Sediment (0/HPF) /HPF 12/27/20 12/27/20 Range/Units 11:03 12:55 WBC (4.0-10.2) K/uL RBC (3.77-5.09) M/uL Hgb (11.7-15.5) g/dL Hct (34.0-46.0) % MCV (84.0-98.0) fL MCH (28.2-33.3) pg MCHC (31.7-36.0) g/dL RDW (11.2-14.1) % Plt Count (150-350) K/uL Neut % (Auto) (45.0-80.0) % Lymph % (Auto) (10.0-50.0) % [place] % (Auto) (2.0-14.0) % Eos % (Auto) (0.0-5.0) % Baso % (Auto) (0.0-2.0) % Neut # (Auto) (1.40-7.00) K/uL Lymph # (Auto) (0.50-3.50) K/uL [place] # (Auto) (0.00-1.00) K/uL Eos # (Auto) (0.00-0.50) K/uL Baso # (Auto) (0.00-0.20) K/uL Sodium (136-145) mmol/L Potassium (3.5-5.1) mmol/L Chloride (98-107) mmol/L Carbon Dioxide (21.0-32.0) mmol/L BUN (7-18) mg/dL Creatinine (0.51-1.17) mg/dL Est Cr Clr Drug Dosing mL/min Estimated GFR (MDRD) mL/min Glucose (70-99) mg/dL POC Glucose 168 H (65-110) mg/dl Calcium (8.5-10.1) mg/dL Iron (50-175) ug/dL TIBC (250-450) ug/dL % Saturation Ferritin (8-388) ng/mL Total Bilirubin (0.2-1.0) mg/dL AST (15-37) U/L ALT (12-78) U/L Alkaline Phosphatase (46-116) IU/L Troponin I (0.000-0.056) ng/mL NT-Pro-B Natriuret Pep (0-125) pg/mL Total Protein (6.4-8.2) g/dL Albumin (3.4-5.0) g/dL Vitamin B12 (193-986) pg/mL Folate (8.6-58.9) ng/mL TSH, Ultra Sensitive (0.358-3.740) mIU/mL Specimen Type Urincath Urine Color Yellow Urine Appearance Clear Urine pH 7.5 (5.0-9.0) Ur Specific [place] 1.020 (1.005-1.030) Urine Protein Negative (NEGATIVE) mg/dL Urine Glucose (UA) Negative (NEGATIVE) mg/dL Urine Ketones Negative (NEGATIVE) mg/dL Urine Occult Blood Negative (NEGATIVE) Urine Nitrite Negative (NEGATIVE) Urine Bilirubin Negative (NEGATIVE) Urine Urobilinogen 0.2 (0.2-1.0) E.U./dL Ur Leukocyte Esterase Negative (NEGATIVE) Urine RBC 0-5 /HPF Urine WBC 0-5 /HPF Ur Epithelial Cells Rare /LPF Amorphous Sediment Rare (0/HPF) /HPF Med Orders - Current: Current Medications Acetaminophen (Tylenol) 650 mg PO Q4H PRN PRN Reason: Pain/Fever Last Admin: 12/26/20 07:23 Dose: 650 mg Documented by: Al Hydroxide/Mg Hydroxide (Mag-Al Plus) 30 ml PO Q8H PRN PRN Reason: Heartburn Last Admin: 12/23/20 14:07 Dose: 30 ml Documented by: Aspirin (Aspirin) 81 mg PO Q48H [facility] Last Admin: 12/26/20 11:17 Dose: 81 mg Documented by: Bisacodyl (Dulcolax) 10 mg RECTAL DAILY PRN PRN Reason: Constipation Cholecalciferol (Vitamin D3) 20 mcg PO DAILY@1200 [facility] Last Admin: 12/27/20 11:20 Dose: 20 mcg Documented by: Dextrose/Water (Dextrose 50% In Water) 50 ml IV ASDIRECTED PRN PRN Reason: Hypoglycemia Enoxaparin Sodium (Lovenox) 40 mg SUBCUT DAILY [facility] Stop: 01/13/21 08:01 Last Admin: 12/27/20 08:10 Dose: 40 mg Documented by: Escitalopram Oxalate (Lexapro) 20 mg PO DAILY@1200 [facility] Last Admin: 12/27/20 11:20 Dose: 20 mg Documented by: Furosemide (Lasix) 20 mg PO BIDDIURETIC [facility] Last Admin: 12/27/20 11:20 Dose: 20 mg Documented by: Glucagon (Glucagen) 1 mg IM ASDIRECTED PRN PRN Reason: Hypoglycemia Sodium Chloride (Normal Saline) 500 mls @ 500 mls/hr IV .BOLUS [facility] Last Admin: 12/27/20 12:45 Dose: 500 mls/hr Documented by: Insulin Glargine (Lantus) 12 unit SUBCUT DAILY [facility] Last Admin: 12/27/20 08:27 Dose: 12 unit Documented by: Insulin Human Regular (Humulin R) 0 unit SUBCUT BID [facility]; Protocol Last Admin: 12/27/20 08:19 Dose: Not Given Documented by: Lactobacillus Rhamnosus (Culturelle) 1 cap PO DAILY@1200 [facility] Last Admin: 12/27/20 11:23 Dose: 1 cap Documented by: Losartan Potassium (Cozaar) 50 mg PO DAILY [facility] Last Admin: 12/27/20 08:12 Dose: 50 mg Documented by: Magnesium Hydroxide (Milk Of Magnesia) 30 ml PO DAILY PRN PRN Reason: Constipation Last Admin: 12/24/20 07:24 Dose: 30 ml Documented by: Magnesium Oxide (Magnesium Oxide) 400 mg PO DAILY@1200 [facility] Last Admin: 12/27/20 11:21 Dose: 400 mg Documented by: Metoprolol Tartrate (Lopressor) 12.5 mg PO Q12HR [facility] Last Admin: 12/27/20 08:12 Dose: 12.5 mg Documented by: Nystatin (Nystop) 0 gm TOP Q12H [facility] Last Admin: 12/27/20 08:20 Dose: 1 applic Documented by: Ondansetron HCl (Zofran Odt) 4 mg PO Q6H PRN PRN Reason: Nausea/Vomiting Last Admin: 12/23/20 09:38 Dose: 4 mg Documented by: Polyethylene Glycol (Miralax) 17 gm PO DAILY [facility] Last Admin: 12/27/20 08:10 Dose: 17 gm Documented by: Potassium Chloride (Klor-Con 10) 10 meq PO DAILY@1200 [facility] Last Admin: 12/27/20 11:22 Dose: 10 meq Documented by: Senna/Docusate Sodium (Senna Plus) 2 tab PO BID PRN PRN Reason: Constipation Last Admin: 12/18/20 11:12 Dose: 2 tab Documented by: Simethicone (Simethicone) 80 mg PO Q4H PRN PRN Reason: Gas Sodium Chloride (Saline Flush) 10 ml FLUSH ASDIRECTED PRN PRN Reason: Keep Vein Open Spironolactone (Aldactone) 12.5 mg PO BID [facility] Last Admin: 12/27/20 08:11 Dose: 12.5 mg Documented by: Tramadol HCl (Ultram) 50 mg PO Q6H PRN PRN Reason: Pain Last Admin: 12/26/20 13:31 Dose: 50 mg Documented by: Discontinued Medications Aspirin (Aspirin) 81 mg PO Q48H [facility] Last Admin: 12/24/20 08:45 Dose: Not Given Documented by: Cholecalciferol (Vitamin D3) 20 mcg PO DAILY [facility] Last Admin: 12/24/20 08:45 Dose: Not Given Documented by: Ciprofloxacin (Ciprofloxacin Hcl) 250 mg PO BID [facility] Stop: 12/26/20 18:00 Last Admin: 12/26/20 17:10 Dose: 250 mg Documented by: Dextrose/Water (Dextrose 50% In Water) 50 ml IV ASDIRECTED PRN PRN Reason: Hypoglycemia Escitalopram Oxalate (Lexapro) 20 mg PO DAILY [facility] Last Admin: 12/24/20 08:45 Dose: Not Given Documented by: Ferrous Sulfate (Ferrous Sulfate) 325 mg PO BIDMEALS [facility] Last Admin: 12/22/20 08:00 Dose: 325 mg Documented by: Furosemide (Lasix) 20 mg PO DAILY@12 [facility] Last Admin: 12/16/20 13:06 Dose: 20 mg Documented by: Furosemide (Lasix) 20 mg PO ONETIME ONE Stop: 12/16/20 19:31 Last Admin: 12/16/20 20:07 Dose: 20 mg Documented by: Glucagon (Glucagen) 1 mg IM ASDIRECTED PRN PRN Reason: Hypoglycemia Insulin Glargine (Lantus) 8 unit SUBCUT DAILY [facility] Last Admin: 12/24/20 07:38 Dose: 8 units Documented by: Lactobacillus Rhamnosus (Culturelle) 1 cap PO DAILY [facility] Last Admin: 12/24/20 08:45 Dose: Not Given Documented by: Losartan Potassium (Cozaar) 25 mg PO DAILY [facility] Magnesium Oxide (Magnesium Oxide) 400 mg PO DAILY [facility] Last Admin: 12/24/20 08:45 Dose: Not Given Documented by: Non-Formulary Medication ([place] [[place]]) 500 mg PO DAILY [facility] Non-Formulary Medication (Calcium Carb/D3/Mag Aa Chelate [Coral Calcium Capsule]) 1 each PO DAILY [facility] Non-Formulary Medication (Cinnamon Bark [Cinnamon]) 1,000 mg PO DAILY [facility] Non-Formulary Medication (Cranberry Fruit Extract [Cranberry]) 425 mg PO DAILY [facility] Non-Formulary Medication (Ginkgo Biloba [Ginkgo Biloba]) 40 mg PO DAILY [facility] Non-Formulary Medication (Non-Formulary Medication [Nf Drug]) 1 each PO DAILY [facility] Non-Formulary Medication (Non-Formulary Medication [Nf Drug]) 1 each PO DAILY [facility] Nystatin (Nystop) 0 gm TOP BID [facility] Last Admin: 12/25/20 12:11 Dose: 1 applic Documented by: Potassium Chloride (Klor-Con M20) 20 meq PO DAILY [facility] Last Admin: 12/21/20 07:58 Dose: 20 meq Documented by: Potassium Chloride (Klor-Con 10) 10 meq PO DAILY [facility] Last Admin: 12/24/20 08:45 Dose: Not Given Documented by: - Exam General: Alert, Oriented, Cooperative, No Acute Distress Lungs: Clear to Auscultation, Normal Respiratory Effort Cardiovascular: Regular Rate, Regular Rhythm GI/Abdominal Exam: Normal Bowel Sounds, Soft, Non-Tender Extremities: Normal Inspection, Non-Tender, No Pedal Edema, Normal Capillary Refill Skin: Warm, Dry, Intact Wound/Incisions: Healing Well Psy/Mental Status: Alert, Normal Affect, Normal Mood - Patient Data Lab Results Last 24 hrs: Laboratory Results - last 24 hr 12/26/20 12/26/20 12/27/20 Range/Units 07:22 16:59 07:15 WBC 6.2 (4.0-10.2) K/uL RBC 3.04 L (3.77-5.09) M/uL Hgb 9.9 L (11.7-15.5) g/dL Hct 30.7 L (34.0-46.0) % MCV 101.0 H (84.0-98.0) fL MCH 32.6 (28.2-33.3) pg MCHC 32.2 (31.7-36.0) g/dL RDW 17.2 H (11.2-14.1) % Plt Count 482 H D (150-350) K/uL Neut % (Auto) 58.4 (45.0-80.0) % Lymph % (Auto) 26.1 (10.0-50.0) % [place] % (Auto) 12.7 (2.0-14.0) % Eos % (Auto) 2.2 (0.0-5.0) % Baso % (Auto) 0.6 (0.0-2.0) % Neut # (Auto) 3.64 (1.40-7.00) K/uL Lymph # (Auto) 1.63 (0.50-3.50) K/uL [place] # (Auto) 0.79 (0.00-1.00) K/uL Eos # (Auto) 0.14 (0.00-0.50) K/uL Baso # (Auto) 0.04 (0.00-0.20) K/uL Sodium (136-145) mmol/L Potassium (3.5-5.1) mmol/L Chloride (98-107) mmol/L Carbon Dioxide (21.0-32.0) mmol/L BUN (7-18) mg/dL Creatinine (0.51-1.17) mg/dL Est Cr Clr Drug Dosing mL/min Estimated GFR (MDRD) mL/min Glucose (70-99) mg/dL POC Glucose 104 230 H (65-110) mg/dl Calcium (8.5-10.1) mg/dL Iron (50-175) ug/dL TIBC (250-450) ug/dL % Saturation Ferritin (8-388) ng/mL Total Bilirubin (0.2-1.0) mg/dL AST (15-37) U/L ALT (12-78) U/L Alkaline Phosphatase (46-116) IU/L Troponin I (0.000-0.056) ng/mL NT-Pro-B Natriuret Pep (0-125) pg/mL Total Protein (6.4-8.2) g/dL Albumin (3.4-5.0) g/dL Vitamin B12 (193-986) pg/mL Folate (8.6-58.9) ng/mL TSH, Ultra Sensitive (0.358-3.740) mIU/mL Specimen Type Urine Color Urine Appearance Urine pH (5.0-9.0) Ur Specific [place] (1.005-1.030) Urine Protein (NEGATIVE) mg/dL Urine Glucose (UA) (NEGATIVE) mg/dL Urine Ketones (NEGATIVE) mg/dL Urine Occult Blood (NEGATIVE) Urine Nitrite (NEGATIVE) Urine Bilirubin (NEGATIVE) Urine Urobilinogen (0.2-1.0) E.U./dL Ur Leukocyte Esterase (NEGATIVE) Urine RBC /HPF Urine WBC /HPF Ur Epithelial Cells /LPF Amorphous Sediment (0/HPF) /HPF 12/27/20 12/27/20 12/27/20 Range/Units 07:15 07:15 07:46 WBC (4.0-10.2) K/uL RBC (3.77-5.09) M/uL Hgb (11.7-15.5) g/dL Hct (34.0-46.0) % MCV (84.0-98.0) fL MCH (28.2-33.3) pg MCHC (31.7-36.0) g/dL RDW (11.2-14.1) % Plt Count (150-350) K/uL Neut % (Auto) (45.0-80.0) % Lymph % (Auto) (10.0-50.0) % [place] % (Auto) (2.0-14.0) % Eos % (Auto) (0.0-5.0) % Baso % (Auto) (0.0-2.0) % Neut # (Auto) (1.40-7.00) K/uL Lymph # (Auto) (0.50-3.50) K/uL [place] # (Auto) (0.00-1.00) K/uL Eos # (Auto) (0.00-0.50) K/uL Baso # (Auto) (0.00-0.20) K/uL Sodium 133 L (136-145) mmol/L Potassium 4.6 (3.5-5.1) mmol/L Chloride 98 (98-107) mmol/L Carbon Dioxide 29.3 (21.0-32.0) mmol/L BUN 19 H (7-18) mg/dL Creatinine 0.67 (0.51-1.17) mg/dL Est Cr Clr Drug Dosing 51.22 mL/min Estimated GFR (MDRD) > 60 mL/min Glucose 99 (70-99) mg/dL POC Glucose 103 (65-110) mg/dl Calcium 8.6 (8.5-10.1) mg/dL Iron 68 (50-175) ug/dL TIBC 219 L (250-450) ug/dL % Saturation 31.56723 Ferritin 1709 H (8-388) ng/mL Total Bilirubin 0.8 (0.2-1.0) mg/dL AST 34 (15-37) U/L ALT 33 (12-78) U/L Alkaline Phosphatase 147 H (46-116) IU/L Troponin I 0.033 (0.000-0.056) ng/mL NT-Pro-B Natriuret Pep 820 H (0-125) pg/mL Total Protein 6.0 L (6.4-8.2) g/dL Albumin 2.6 L (3.4-5.0) g/dL Vitamin B12 1275 H (193-986) pg/mL Folate 19.9 (8.6-58.9) ng/mL TSH, Ultra Sensitive 1.940 (0.358-3.740) mIU/mL Specimen Type Urine Color Urine Appearance Urine pH (5.0-9.0) Ur Specific [place] (1.005-1.030) Urine Protein (NEGATIVE) mg/dL Urine Glucose (UA) (NEGATIVE) mg/dL Urine Ketones (NEGATIVE) mg/dL Urine Occult Blood (NEGATIVE) Urine Nitrite (NEGATIVE) Urine Bilirubin (NEGATIVE) Urine Urobilinogen (0.2-1.0) E.U./dL Ur Leukocyte Esterase (NEGATIVE) Urine RBC /HPF Urine WBC /HPF Ur Epithelial Cells /LPF Amorphous Sediment (0/HPF) /HPF 12/27/20 12/27/20 Range/Units 11:03 12:55 WBC (4.0-10.2) K/uL RBC (3.77-5.09) M/uL Hgb (11.7-15.5) g/dL Hct (34.0-46.0) % MCV (84.0-98.0) fL MCH (28.2-33.3) pg MCHC (31.7-36.0) g/dL RDW (11.2-14.1) % Plt Count (150-350) K/uL Neut % (Auto) (45.0-80.0) % Lymph % (Auto) (10.0-50.0) % [place] % (Auto) (2.0-14.0) % Eos % (Auto) (0.0-5.0) % Baso % (Auto) (0.0-2.0) % Neut # (Auto) (1.40-7.00) K/uL Lymph # (Auto) (0.50-3.50) K/uL [place] # (Auto) (0.00-1.00) K/uL Eos # (Auto) (0.00-0.50) K/uL Baso # (Auto) (0.00-0.20) K/uL Sodium (136-145) mmol/L Potassium (3.5-5.1) mmol/L Chloride (98-107) mmol/L Carbon Dioxide (21.0-32.0) mmol/L BUN (7-18) mg/dL Creatinine (0.51-1.17) mg/dL Est Cr Clr Drug Dosing mL/min Estimated GFR (MDRD) mL/min Glucose (70-99) mg/dL POC Glucose 168 H (65-110) mg/dl Calcium (8.5-10.1) mg/dL Iron (50-175) ug/dL TIBC (250-450) ug/dL % Saturation Ferritin (8-388) ng/mL Total Bilirubin (0.2-1.0) mg/dL AST (15-37) U/L ALT (12-78) U/L Alkaline Phosphatase (46-116) IU/L Troponin I (0.000-0.056) ng/mL NT-Pro-B Natriuret Pep (0-125) pg/mL Total Protein (6.4-8.2) g/dL Albumin (3.4-5.0) g/dL Vitamin B12 (193-986) pg/mL Folate (8.6-58.9) ng/mL TSH, Ultra Sensitive (0.358-3.740) mIU/mL Specimen Type Urincath Urine Color Yellow Urine Appearance Clear Urine pH 7.5 (5.0-9.0) Ur Specific [place] 1.020 (1.005-1.030) Urine Protein Negative (NEGATIVE) mg/dL Urine Glucose (UA) Negative (NEGATIVE) mg/dL Urine Ketones Negative (NEGATIVE) mg/dL Urine Occult Blood Negative (NEGATIVE) Urine Nitrite Negative (NEGATIVE) Urine Bilirubin Negative (NEGATIVE) Urine Urobilinogen 0.2 (0.2-1.0) E.U./dL Ur Leukocyte Esterase Negative (NEGATIVE) Urine RBC 0-5 /HPF Urine WBC 0-5 /HPF Ur Epithelial Cells Rare /LPF Amorphous Sediment Rare (0/HPF) /HPF Result Diagrams: 12/29/20 07:20 12/29/20 07:20 Sepsis Event Note - Evaluation Sepsis Screening Result: No Definite Risk - Focused Exam Vital Signs: Vital Signs Temp Pulse Pulse Resp BP BP Pulse Ox 12/27/20 08:12 60 155/99 H 12/27/20 08:00 97.2 F 60 16 155/99 H 99 - Problem List & Annotations (1) Hyponatremia SNOMED Code(s): 05552085 Code(s): E87.1 - HYPO-OSMOLALITY AND HYPONATREMIA Status: Acute Priority: High Current Visit: Yes Onset Date: 12/21/20 Annotation/Comment:: Mild hyponatremia likely secondary to CHF. Will try a 500 ml bolus of NS and continue to monitor. BMP is morning. (2) Abdominal pain SNOMED Code(s): 20629693 Code(s): R10.9 - UNSPECIFIED ABDOMINAL PAIN Status: Resolved Current Visit: No (3) Closed right hip fracture SNOMED Code(s): 997342227 Code(s): S72.001A - FRACTURE OF UNSP PART OF NECK OF RIGHT FEMUR, INIT Status: Acute Priority: High Current Visit: No Onset Date: 12/09/20 Qualifiers: Encounter type: subsequent encounter Annotation/Comment:: Right hip fracture from fall in garage at home. ORIF at [facility]. Here for PT/OT, which is progressing very slowly. The patient still wants to go home, however has difficulty standing at this time and nursing is using a lasha lift for transfers. Compliance with PT and OT was encouraged, but patient not very compliant. (4) CHF (congestive heart failure) SNOMED Code(s): 12323838 Code(s): I50.9 - HEART FAILURE, UNSPECIFIED Status: Acute Priority: High Current Visit: Yes Qualifiers: Heart failure type: diastolic Heart failure chronicity: acute on chronic Qualified Code(s): I50.33 - Acute on chronic diastolic (congestive) heart failure Annotation/Comment:: Previous addition of spironolactone both for treatment of her hypertension and CHF. No chest pain or anginal type symptoms. Note current pacemaker. BNP was 978 (5) Coronary artery disease SNOMED Code(s): 40263783 Code(s): I25.10 - ATHSCL HEART DISEASE OF [place] CORONARY ARTERY W/O ANG PCTRS Status: Acute Current Visit: Yes Qualifiers: Coronary Disease-Associated Artery/Lesion type: [place] artery [place] vs. transplanted heart: [place] heart Associated angina: without angina Qualified Code(s): I25.10 - Atherosclerotic heart disease of [place] coronary artery without angina pectoris Annotation/Comment:: As above (6) Mixed anxiety and depressive disorder SNOMED Code(s): 352538415 Code(s): F41.8 - OTHER SPECIFIED ANXIETY DISORDERS Status: Acute Priority: High Current Visit: Yes Onset Date: ~12/21/20 Annotation/Comment:: Nursing staff has noted progressive anxiety and depression, which the patient does not wish to acknowledge. Lexapro therapy as chronic pain control and treatment for her emotional statuswas started earlier this week so no changes noted yet. Continue to observe closely at time of discharge from [facility] care. (7) Nausea SNOMED Code(s): 274649040 Code(s): R11.0 - NAUSEA Status: Resolved Current Visit: Yes Annotati on/Comment:: no complaints currently - resolved (8) Postoperative anemia SNOMED Code(s): 080798713, 325588254 Code(s): D64.9 - ANEMIA, UNSPECIFIED Status: Acute Priority: Medium Current Visit: Yes Onset Date: ~12/14/20 Annotation/Comment:: Another small improvement of her postoperative anemia with hemoglobin of 9.7 comparison to previous 9.4 and 9.2. No evidence of acute bleeding at this time despite her current prophylactic subcu Lovenox therapy. (9) UTI (urinary tract infection) SNOMED Code(s): 19069844 Code(s): N39.0 - URINARY TRACT INFECTION, SITE NOT SPECIFIED Status: Resol [place] Priority: Medium Current Visit: Yes Onset Date: 12/19/20 Qualifiers: Urinary tract infection type: acute cystitis Hematuria presence: without hematuria Qualified Code(s): N30.00 - Acute cystitis without hematuria (10) AV block, [place] II SNOMED Code(s): 60840397 Code(s): I44.1 - ATRIOVENTRICULAR BLOCK, SECOND DEGREE Status: Chronic Priority: Low Current Visit: Yes Annotation/Comment:: Has been stable (11) Chronic kidney disease SNOMED Code(s): 520781577 Code(s): N18.9 - CHRONIC KIDNEY DISEASE, UNSPECIFIED Status: Chronic Priority: Low Current Visit: Yes Qualifiers: Chronic kidney disease stage: stage 3 (moderate) Annotation/Comment:: Stable (12) Diabetes mellitus SNOMED Code(s): 59136886 Code(s): E11.9 - TYPE 2 DIABETES MELLITUS WITHOUT COMPLICATIONS Status: Chronic Priority: Medium Current Visit: Yes Annotation/Comment:: Continue sliding scale with verbal Accu-Cheks at this time. Started on insulin therapy by [facility]. Continue accuchecks and adjust doses as indicated. Patient received diabetic consult while in [place]. (13) HTN, Benign hypertension SNOMED Code(s): 87608648 Code(s): I10 - ESSENTIAL (PRIMARY) HYPERTENSION Status: Chronic Priority: High Current Visit: Yes Onset Date: ~12/14/20 Annotation/Comment:: Continue to monitor - My Orders Last 24 Hours: My Active Orders 12/27/20 12:11 Sodium Chloride 0.9% [Saline Flush] 10 ml FLUSH ASDIRECTED PRN Saline Lock Insert [OM.PC] Routine 12/27/20 12:15 Sodium Chloride 0.9% [Normal Saline] 500 ml IV .BOLUS 12/28/20 07:00 BASIC METABOLIC PANEL,BMP [CHEM] Routine 12/28/20 12:12 PRO B-TYPE NATRIUR PEPT,BNPPRO [CHEM] Routine - Assessment Assessment:: As above - Plan Plan:: After I saw patient this morning she was on the commode and had a BM. It sounds like she likely had a vasovagal episode following a BM. Nursing assessed and monitored. Patient is doing well now See weekly and as needed Care conference planned for this afternoon with her 2 sons Will see how she progresses in PT to determine further treatment and plan. <Anay Manjarrez H - Last Filed: 12/30/20 00:37> - General Info Date of Service: 12/27/20 Admission Dx/Problem (Free Text): S/P surgical fixation right hip fracture Subjective Update: Patient is an 89 year old female that is on swing bed status post hip fracture and replacement. She is here for rehab and she is hoping to eventually be discharged back for her own home. She has asked for me to take over her care. Today she offers no complaints and says she is doing well but states, "I'm not ready to run any races." She thinks that her fluid intake has been adequate and she never really has had a great appetite so this is not new. Drinks ensure like she did at home prior to the injury. Her sons are planning on coming for a visit today/tomorrow so she is excited about that. Functional Status: Reports: Pain Controlled - Review of Systems HEENT: Reports: No Symptoms Pulmonary: Reports: No Symptoms Cardiovascular: Reports: No Symptoms Gastrointestinal: Reports: Decreased Appetite Genitourinary: Reports: No Symptoms, Other Musculoskeletal: Reports: Other Skin: Reports: No Symptoms Neurological: Reports: Weakness, Other Psychiatric: Reports: Depression - Patient Data Vitals - Most Recent: Last Vital Signs Temp 36.5 C 12/29/20 19:02 Pulse 61 12/29/20 19:47 Resp 18 12/29/20 19:02 BP 174/69 H 12/29/20 19:47 Pulse Ox 92 L 12/29/20 19:02 I&O - Last 24 Hours: Intake & Output 12/29/20 12/29/20 12/30/20 14:59 22:59 06:59 Intake Total 202 Output Total 800 Balance 202 -800 Lab Results Last 24 Hours: Laboratory Results - last 24 hr 12/29/20 12/29/20 12/29/20 Range/Units 07:20 07:20 07:30 WBC 6.4 (4.0-10.2) K/uL RBC 2.98 L (3.77-5.09) M/uL Hgb 9.7 L (11.7-15.5) g/dL Hct 30.3 L (34.0-46.0) % MCV 101.7 H (84.0-98.0) fL MCH 32.6 (28.2-33.3) pg MCHC 32.0 (31.7-36.0) g/dL RDW 17.8 H (11.2-14.1) % Plt Count 482 H (150-350) K/uL Neut % (Auto) 60.0 (45.0-80.0) % Lymph % (Auto) 24.6 (10.0-50.0) % [place] % (Auto) 13.2 (2.0-14.0) % Eos % (Auto) 1.7 (0.0-5.0) % Baso % (Auto) 0.5 (0.0-2.0) % Neut # (Auto) 3.82 (1.40-7.00) K/uL Lymph # (Auto) 1.57 (0.50-3.50) K/uL [place] # (Auto) 0.84 (0.00-1.00) K/uL Eos # (Auto) 0.11 (0.00-0.50) K/uL Baso # (Auto) 0.03 (0.00-0.20) K/uL Sodium 136 (136-145) mmol/L Potassium 4.5 (3.5-5.1) mmol/L Chloride 102 (98-107) mmol/L Carbon Dioxide 26.6 (21.0-32.0) mmol/L BUN 17 (7-18) mg/dL Creatinine 0.63 (0.51-1.17) mg/dL Est Cr Clr Drug Dosing 50.72 mL/min Estimated GFR (MDRD) > 60 mL/min Glucose 99 (70-99) mg/dL POC Glucose 106 (65-110) mg/dl Calcium 9.1 (8.5-10.1) mg/dL 12/29/20 Range/Units 17:08 WBC (4.0-10.2) K/uL RBC (3.77-5.09) M/uL Hgb (11.7-15.5) g/dL Hct (34.0-46.0) % MCV (84.0-98.0) fL MCH (28.2-33.3) pg MCHC (31.7-36.0) g/dL RDW (11.2-14.1) % Plt Count (150-350) K/uL Neut % (Auto) (45.0-80.0) % Lymph % (Auto) (10.0-50.0) % [place] % (Auto) (2.0-14.0) % Eos % (Auto) (0.0-5.0) % Baso % (Auto) (0.0-2.0) % Neut # (Auto) (1.40-7.00) K/uL Lymph # (Auto) (0.50-3.50) K/uL [place] # (Auto) (0.00-1.00) K/uL Eos # (Auto) (0.00-0.50) K/uL Baso # (Auto) (0.00-0.20) K/uL Sodium (136-145) mmol/L Potassium (3.5-5.1) mmol/L Chloride (98-107) mmol/L Carbon Dioxide (21.0-32.0) mmol/L BUN (7-18) mg/dL Creatinine (0.51-1.17) mg/dL Est Cr Clr Drug Dosing mL/min Estimated GFR (MDRD) mL/min Glucose (70-99) mg/dL POC Glucose 135 H (65-110) mg/dl Calcium (8.5-10.1) mg/dL Guillermo Results Last 24 Hours: Microbiology 12/27/20 12:55 Urine Culture - Final Urine, Catheterized NO GROWTH AFTER 2 DAYS Med Orders - Current: Current Medications Acetaminophen (Tylenol) 650 mg PO Q4H PRN PRN Reason: Pain/Fever Last Admin: 12/29/20 12:36 Dose: 650 mg Documented by: Al Hydroxide/Mg Hydroxide (Mag-Al Plus) 30 ml PO Q8H PRN PRN Reason: Heartburn Last Admin: 12/23/20 14:07 Dose: 30 ml Documented by: Aspirin (Aspirin) 81 mg PO Q48H DUTCH Last Admin: 12/28/20 11:53 Dose: 81 mg Documented by: Bisacodyl (Dulcolax) 10 mg RECTAL DAILY PRN PRN Reason: Constipation Cholecalciferol (Vitamin D3) 20 mcg PO DAILY@1200 DUTCH Last Admin: 12/29/20 11:51 Dose: 20 mcg Documented by: Dextrose/Water (Dextrose 50% In Water) 50 ml IV ASDIRECTED PRN PRN Reason: Hypoglycemia Enoxaparin Sodium (Lovenox) 40 mg SUBCUT DAILY [facility] Stop: 01/13/21 08:01 Last Admin: 12/29/20 08:03 Dose: 40 mg Documented by: Escitalopram Oxalate (Lexapro) 20 mg PO DAILY@1200 [facility] Last Admin: 12/29/20 11:51 Dose: 20 mg Documented by: Furosemide (Lasix) 20 mg PO DAILY [facility] Last Admin: 12/29/20 07:54 Dose: 20 mg Documented by: Glucagon (Glucagen) 1 mg IM ASDIRECTED PRN PRN Reason: Hypoglycemia Sodium Chloride (Normal Saline) 500 mls @ 500 mls/hr IV .BOLUS [facility] Last Admin: 12/27/20 12:45 Dose: 500 mls/hr Documented by: Sodium Chloride (Sodium Chloride 3%) 500 mls @ 30 mls/hr IV ASDIRECTED [facility] Last Admin: 12/29/20 13:20 Dose: 30 mls/hr Documented by: Insulin Glargine (Lantus) 12 unit SUBCUT DAILY [facility] Last Admin: 12/29/20 07:58 Dose: 12 unit Documented by: Insulin Human Regular (Humulin R) 0 unit SUBCUT BID [facility]; Protocol Last Admin: 12/29/20 17:19 Dose: Not Given Documented by: Lactobacillus Rhamnosus (Culturelle) 1 cap PO DAILY@1200 [facility] Last Admin: 12/29/20 11:51 Dose: 1 cap Documented by: Losartan Potassium (Cozaar) 50 mg PO DAILY [facility] Last Admin: 12/29/20 07:53 Dose: 50 mg Documented by: Magnesium Hydroxide (Milk Of Magnesia) 30 ml PO DAILY PRN PRN Reason: Constipation Last Admin: 12/24/20 07:24 Dose: 30 ml Documented by: Magnesium Oxide (Magnesium Oxide) 400 mg PO DAILY@1200 [facility] Last Admin: 12/29/20 11:51 Dose: 400 mg Documented by: Metoprolol Tartrate (Lopressor) 12.5 mg PO Q12HR [facility] Last Admin: 12/29/20 19:47 Dose: 12.5 mg Documented by: Nystatin (Nystop) 0 gm TOP Q12H [facility] Last Admin: 12/29/20 19:49 Dose: 1 applic Documented by: Ondansetron HCl (Zofran Odt) 4 mg PO Q6H PRN PRN Reason: Nausea/Vomiting Last Admin: 12/23/20 09:38 Dose: 4 mg Documented by: Polyethylene Glycol (Miralax) 17 gm PO DAILY [facility] Last Admin: 12/29/20 07:56 Dose: 17 gm Documented by: Potassium Chloride (Klor-Con 10) 10 meq PO DAILY@1200 [facility] Last Admin: 12/29/20 11:51 Dose: 10 meq Documented by: Senna/Docusate Sodium (Senna Plus) 2 tab PO BID PRN PRN Reason: Constipation Last Admin: 12/18/20 11:12 Dose: 2 tab Documented by: Simethicone (Simethicone) 80 mg PO Q4H PRN PRN Reason: Gas Sodium Chloride (Saline Flush) 10 ml FLUSH ASDIRECTED PRN PRN Reason: Keep Vein Open Sodium Chloride (Sodium Chloride) 1 gm PO DAILY [facility] Last Admin: 12/29/20 07:53 Dose: 1 gm Documented by: Spironolactone (Aldactone) 12.5 mg PO BID [facility] Last Admin: 12/29/20 17:15 Dose: 12.5 mg Documented by: Tramadol HCl (Ultram) 50 mg PO Q6H PRN PRN Reason: Pain Last Admin: 12/29/20 14:39 Dose: 50 mg Documented by: Discontinued Medications Aspirin (Aspirin) 81 mg PO Q48H [facility] Last Admin: 12/24/20 08:45 Dose: Not Given Documented by: Cholecalciferol (Vitamin D3) 20 mcg PO DAILY [facility] Last Admin: 12/24/20 08:45 Dose: Not Given Documented by: Ciprofloxacin (Ciprofloxacin Hcl) 250 mg PO BID [facility] Stop: 12/26/20 18:00 Last Admin: 12/26/20 17:10 Dose: 250 mg Documented by: Dextrose/Water (Dextrose 50% In Water) 50 ml IV ASDIRECTED PRN PRN Reason: Hypoglycemia Escitalopram Oxalate (Lexapro) 20 mg PO DAILY [facility] Last Admin: 12/24/20 08:45 Dose: Not Given Documented by: Ferrous Sulfate (Ferrous Sulfate) 325 mg PO BIDMEALS [facility] Last Admin: 12/22/20 08:00 Dose: 325 mg Documented by: Furosemide (Lasix) 20 mg PO DAILY@12 [facility] Last Admin: 12/16/20 13:06 Dose: 20 mg Documented by: Furosemide (Lasix) 20 mg PO ONETIME ONE Stop: 12/16/20 19:31 Last Admin: 12/16/20 20:07 Dose: 20 mg Documented by: Furosemide (Lasix) 20 mg PO BIDDIURETIC [facility] Last Admin: 12/28/20 11:53 Dose: 20 mg Documented by: Glucagon (Glucagen) 1 mg IM ASDIRECTED PRN PRN Reason: Hypoglycemia Sodium Chloride (Sodium Chloride 3%) 500 mls @ 30 mls/hr IV CONTINUOUS ONE Stop: 12/29/20 12:09 Last Admin: 12/28/20 19:51 Dose: 30 mls/hr Documented by: Sodium Chloride (Sodium Chloride 3%) 500 mls @ 30 mls/hr IV ASDIRECTED DUTCH Insulin Glargine (Lantus) 8 unit SUBCUT DAILY [facility] Last Admin: 12/24/20 07:38 Dose: 8 units Documented by: Lactobacillus Rhamnosus (Culturelle) 1 cap PO DAILY DUTCH Last Admin: 12/24/20 08:45 Dose: Not Given Documented by: Losartan Potassium (Cozaar) 25 mg PO DAILY DUTCH Magnesium Oxide (Magnesium Oxide) 400 mg PO DAILY [facility] Last Admin: 12/24/20 08:45 Dose: Not Given Documented by: Non-Formulary Medication ([place] [[place]]) 500 mg PO DAILY DUTCH Non-Formulary Medication (Calcium Carb/D3/Mag Aa Chelate [Coral Calcium Capsule]) 1 each PO DAILY DUTCH Non-Formulary Medication (Cinnamon Bark [Cinnamon]) 1,000 mg PO DAILY DUTCH Non-Formulary Medication (Cranberry Fruit Extract [Cranberry]) 425 mg PO DAILY DUTCH Non-Formulary Medication (Ginkgo Biloba [Ginkgo Biloba]) 40 mg PO DAILY DUTCH Non-Formulary Medication (Non-Formulary Medication [Nf Drug]) 1 each PO DAILY DUTCH Non-Formulary Medication (Non-Formulary Medication [Nf Drug]) 1 each PO DAILY DUTCH Nystatin (Nystop) 0 gm TOP BID [facility] Last Admin: 12/25/20 12:11 Dose: 1 applic Documented by: Potassium Chloride (Klor-Con M20) 20 meq PO DAILY DUTCH Last Admin: 12/21/20 07:58 Dose: 20 meq Documented by: Potassium Chloride (Klor-Con 10) 10 meq PO DAILY [facility] Last Admin: 12/24/20 08:45 Dose: Not Given Documented by: - Exam General: Alert, Oriented, Cooperative, No Acute Distress HEENT: EOMI Lungs: Clear to Auscultation, Normal Respiratory Effort Cardiovascular: Regular Rate, Regular Rhythm GI/Abdominal Exam: Normal Bowel Sounds, Soft, Non-Tender Extremities: Normal Inspection, Non-Tender, No Pedal Edema, Normal Capillary Refill Skin: Warm, Dry, Intact Wound/Incisions: Healing Well Psy/Mental Status: Alert, Normal Affect, Normal Mood - Patient Data Lab Results Last 24 hrs: Laboratory Results - last 24 hr 12/29/20 12/29/20 12/29/20 Range/Units 07:20 07:20 07:30 WBC 6.4 (4.0-10.2) K/uL RBC 2.98 L (3.77-5.09) M/uL Hgb 9.7 L (11.7-15.5) g/dL Hct 30.3 L (34.0-46.0) % MCV 101.7 H (84.0-98.0) fL MCH 32.6 (28.2-33.3) pg MCHC 32.0 (31.7-36.0) g/dL RDW 17.8 H (11.2-14.1) % Plt Count 482 H (150-350) K/uL Neut % (Auto) 60.0 (45.0-80.0) % Lymph % (Auto) 24.6 (10.0-50.0) % [place] % (Auto) 13.2 (2.0-14.0) % Eos % (Auto) 1.7 (0.0-5.0) % Baso % (Auto) 0.5 (0.0-2.0) % Neut # (Auto) 3.82 (1.40-7.00) K/uL Lymph # (Auto) 1.57 (0.50-3.50) K/uL [place] # (Auto) 0.84 (0.00-1.00) K/uL Eos # (Auto) 0.11 (0.00-0.50) K/uL Baso # (Auto) 0.03 (0.00-0.20) K/uL Sodium 136 (136-145) mmol/L Potassium 4.5 (3.5-5.1) mmol/L Chloride 102 (98-107) mmol/L Carbon Dioxide 26.6 (21.0-32.0) mmol/L BUN 17 (7-18) mg/dL Creatinine 0.63 (0.51-1.17) mg/dL Est Cr Clr Drug Dosing 50.72 mL/min Estimated GFR (MDRD) > 60 mL/min Glucose 99 (70-99) mg/dL POC Glucose 106 (65-110) mg/dl Calcium 9.1 (8.5-10.1) mg/dL 12/29/20 Range/Units 17:08 WBC (4.0-10.2) K/uL RBC (3.77-5.09) M/uL Hgb (11.7-15.5) g/dL Hct (34.0-46.0) % MCV (84.0-98.0) fL MCH (28.2-33.3) pg MCHC (31.7-36.0) g/dL RDW (11.2-14.1) % Plt Count (150-350) K/uL Neut % (Auto) (45.0-80.0) % Lymph % (Auto) (10.0-50.0) % [place] % (Auto) (2.0-14.0) % Eos % (Auto) (0.0-5.0) % Baso % (Auto) (0.0-2.0) % Neut # (Auto) (1.40-7.00) K/uL Lymph # (Auto) (0.50-3.50) K/uL [place] # (Auto) (0.00-1.00) K/uL Eos # (Auto) (0.00-0.50) K/uL Baso # (Auto) (0.00-0.20) K/uL Sodium (136-145) mmol/L Potassium (3.5-5.1) mmol/L Chloride (98-107) mmol/L Carbon Dioxide (21.0-32.0) mmol/L BUN (7-18) mg/dL Creatinine (0.51-1.17) mg/dL Est Cr Clr Drug Dosing mL/min Estimated GFR (MDRD) mL/min Glucose (70-99) mg/dL POC Glucose 135 H (65-110) mg/dl Calcium (8.5-10.1) mg/dL Result Diagrams: 12/29/20 07:20 12/29/20 07:20 Guillermo Results Last 24 hrs: Microbiology 12/27/20 12:55 Urine Culture - Final Urine, Catheterized NO GROWTH AFTER 2 DAYS Sepsis Event Note - Focused Exam Vital Signs: Vital Signs Temp Pulse Pulse Resp BP BP Pulse Ox 12/29/20 19:47 61 174/69 H 12/29/20 19:02 36.5 C 61 18 174/69 H 92 L - Problem List & Annotations (1) Closed right hip fracture SNOMED Code(s): 249205512 Code(s): S72.001A - FRACTURE OF UNSP PART OF NECK OF RIGHT FEMUR, INIT Status: Acute Priority: High Current Visit: No Onset Date: 12/09/20 Qualifiers: Encounter type: subsequent encounter Annotation/Comment:: Right hip fracture from fall in garage at home. ORIF at [facility] in [place]. Here for PT/OT, which is progressing very slowly. The patient still wants to go home, however has difficulty standing at this time and nursing is using a lasha lift for transfers. Compliance with PT and OT was encouraged, but patient not very compliant. (2) HTN, Benign hypertension SNOMED Code(s): 02948828 Code(s): I10 - ESSENTIAL (PRIMARY) HYPERTENSION Status: Chronic Priority: High Current Visit: Yes Onset Date: ~12/14/20 Annotation/Comment:: Continue to monitor (3) Diabetes mellitus SNOMED Code(s): 34850401 Code(s): E11.9 - TYPE 2 DIABETES MELLITUS WITHOUT COMPLICATIONS Status: Chronic Priority: Medium Current Visit: Yes Annotation/Comment:: Continue sliding scale with verbal Accu-Cheks at this time. Started on insulin therapy by [facility]. Continue accuchecks and adjust doses as indicated. Patient received diabetic consult while in [place]. (4) Macrocytic anemia SNOMED Code(s): 30113833 Code(s): D53.9 - NUTRITIONAL ANEMIA, UNSPECIFIED Status: Chronic Priority: Low Current Visit: Yes Annotation/Comment:: No change in current management per [facility] transfer packet. Observe. (5) Chronic kidney disease SNOMED Code(s): 580063429 Code(s): N18.9 - CHRONIC KIDNEY DISEASE, UNSPECIFIED Status: Chronic Priority: Low Current Visit: Yes Qualifiers: Chronic kidney disease stage: stage 3 (moderate) Annotation/Comment:: Stable (6) Diastolic dysfunction without heart failure SNOMED Code(s): 9294924 Code(s): I51.89 - OTHER ILL-DEFINED HEART DISEASES Status: Chronic Priority: Low Current Visit: No (7) History of non-ST elevation myocardial infarction (NSTEMI) SNOMED Code(s): 929112726 Code(s): I25.2 - OLD MYOCARDIAL INFARCTION Status: Acute Priority: Low Current Visit: No Annotation/Comment:: Recent evaluation by Cardiology at [facility]. Angiogram performed. To continue follow up as directed by Cardiology. 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 SNOMED Code(s): 96620540 Code(s): I44.1 - ATRIOVENTRICULAR BLOCK, SECOND DEGREE Status: Chronic Priority: Low Current Visit: Yes Annotation/Comment:: Has been stable (9) Abdominal aortic aneurysm SNOMED Code(s): 601102445 Code(s): I71.4 - ABDOMINAL AORTIC ANEURYSM, WITHOUT RUPTURE Status: Chronic Priority: Medium Current Visit: No Qualifiers: Presence of rupture: without rupture Qualified Code(s): I71.4 - Abdominal aortic aneurysm, without rupture Annotation/Comment:: Stable by recent repeat abdominal aortic ultrasound as above (10) Pacemaker SNOMED Code(s): 786794658 Code(s): Z95.0 - PRESENCE OF CARDIAC PACEMAKER Status: Chronic Current Visit: No Annotation/Comment:: This was placed in [place] on 07/17/15 at [facility] per patient report - Problem List Review Problem List Initiated/Reviewed/Updated: Yes - My Orders Last 24 Hours: My Active Orders 12/29/20 08:00 Furosemide [Lasix] 20 mg PO DAILY Sodium Chloride 1 gm PO DAILY 12/29/20 13:00 Sodium Chloride 3% 500 ml IV ASDIRECTED
[2020-12-27] MEDS: Acetaminophen 325 MG Tab PO PRN (15:44)
[2020-12-27] MEDS: traMADol 50 MG Tab PO PRN (22:57)
[2020-12-28 07:54] LABS: CHLORIDE,CL 98 mmol/L (98-107); SODIUM,NA 131 mmol/L (136-145)
[2020-12-28] MEDS: Furosemide 20 MG Tab PO SCH ×2 (07:55→11:53)
[2020-12-28] MEDS: Polyethylene Glycol 3350 Powder 17 GM Packet PO SCH (07:55)
[2020-12-28] MEDS: Spironolactone 25 MG Tab PO SCH ×2 (07:57→17:30)
[2020-12-28] MEDS: Losartan 50 MG Tab PO SCH (07:57)
[2020-12-28] MEDS: Metoprolol Tartrate 25 MG Tab PO SCH ×2 (07:57→19:51)
[2020-12-28] MEDS: traMADol 50 MG Tab PO PRN (07:58)
[2020-12-28] MEDS: Acetaminophen 325 MG Tab PO PRN ×2 (07:59→17:33)
[2020-12-28] MEDS: Enoxaparin 40 MG/0.4 ML Syringe SUBCUT SCH (07:59)
[2020-12-28] MEDS: Nystatin Topical Powder 15 GM Bottle TOP SCH ×2 (07:59→19:53)
[2020-12-28] MEDS: Insulin Regular, Human 100 Units/ML 3 ML Vial SUBCUT SCH ×2 (08:00→17:30)
[2020-12-28] MEDS: Insulin Glarg,Human.Rec.Analog 100 Unit/ML SUBCUT SCH (08:04)
[2020-12-28] MEDS: Aspirin 81 MG Tab.Chew PO SCH (11:53)
[2020-12-28] MEDS: Potassium Chloride 10 MEQ Tab.ER PO SCH (11:54)
[2020-12-28] MEDS: Cholecalciferol (Vitamin D3) 10 MCG Tab PO SCH (11:54)
[2020-12-28] MEDS: Escitalopram 20 MG Tab PO SCH (11:54)
[2020-12-28] MEDS: Lactobacillus Rhamnosus GG (Probiotic) Cap PO SCH (11:54)
[2020-12-28] MEDS: Magnesium Oxide 400 MG Tab PO SCH (11:54)
[2020-12-28] MEDS ORDERED: Sodium Chloride 3% 500 ML IV ONE (19:30)
[2020-12-29] MEDS: Sodium Chloride 1 GM Tab PO SCH (07:53)
[2020-12-29] MEDS: Losartan 50 MG Tab PO SCH (07:53)
[2020-12-29] MEDS: Furosemide 20 MG Tab PO SCH (07:54)
[2020-12-29] MEDS: Spironolactone 25 MG Tab PO SCH ×2 (07:54→17:15)
[2020-12-29] MEDS: Metoprolol Tartrate 25 MG Tab PO SCH ×2 (07:55→19:47)
[2020-12-29] MEDS: Polyethylene Glycol 3350 Powder 17 GM Packet PO SCH (07:56)
[2020-12-29] MEDS: Insulin Regular, Human 100 Units/ML 3 ML Vial SUBCUT SCH ×2 (07:57→17:19)
[2020-12-29] MEDS: Insulin Glarg,Human.Rec.Analog 100 Unit/ML SUBCUT SCH (07:58)
[2020-12-29] MEDS: traMADol 50 MG Tab PO PRN ×2 (07:59→14:39)
[2020-12-29] MEDS: Enoxaparin 40 MG/0.4 ML Syringe SUBCUT SCH (08:03)
[2020-12-29] MEDS: Nystatin Topical Powder 15 GM Bottle TOP SCH ×2 (08:04→19:49)
[2020-12-29 08:16] LABS: CHLORIDE,CL 102 mmol/L (98-107); SODIUM,NA 136 mmol/L (136-145)
[2020-12-29] MEDS: Escitalopram 20 MG Tab PO SCH (11:51)
[2020-12-29] MEDS: Magnesium Oxide 400 MG Tab PO SCH (11:51)
[2020-12-29] MEDS: Lactobacillus Rhamnosus GG (Probiotic) Cap PO SCH (11:51)
[2020-12-29] MEDS: Potassium Chloride 10 MEQ Tab.ER PO SCH (11:51)
[2020-12-29] MEDS: Cholecalciferol (Vitamin D3) 10 MCG Tab PO SCH (11:51)
[2020-12-29] MEDS: Acetaminophen 325 MG Tab PO PRN (12:36)
[2020-12-29] MEDS ORDERED: Sodium Chloride 3% 500 ML IV SCH ×2 (12:45→13:00)
[2020-12-30 08:03] LABS: CHLORIDE,CL 105 mmol/L (98-107); SODIUM,NA 139 mmol/L (136-145)
[2020-12-30] MEDS: Enoxaparin 40 MG/0.4 ML Syringe SUBCUT SCH (08:08)
[2020-12-30] MEDS: Furosemide 20 MG Tab PO SCH (08:08)
[2020-12-30] MEDS: Spironolactone 25 MG Tab PO SCH ×2 (08:09→18:06)
[2020-12-30] MEDS: Losartan 50 MG Tab PO SCH (08:09)
[2020-12-30] MEDS: Insulin Regular, Human 100 Units/ML 3 ML Vial SUBCUT SCH ×2 (08:16→18:07)
[2020-12-30] MEDS: Metoprolol Tartrate 25 MG Tab PO SCH ×2 (08:17→19:03)
[2020-12-30] MEDS: Sodium Chloride 1 GM Tab PO SCH (08:17)
[2020-12-30] MEDS: Polyethylene Glycol 3350 Powder 17 GM Packet PO SCH (08:18)
[2020-12-30] MEDS: Insulin Glarg,Human.Rec.Analog 100 Unit/ML SUBCUT SCH (08:18)
[2020-12-30] MEDS: Nystatin Topical Powder 15 GM Bottle TOP SCH ×2 (10:15→19:04)
[2020-12-30] MEDS: Magnesium Oxide 400 MG Tab PO SCH (11:43)
[2020-12-30] MEDS: Lactobacillus Rhamnosus GG (Probiotic) Cap PO SCH (11:43)
[2020-12-30] MEDS: Potassium Chloride 10 MEQ Tab.ER PO SCH (11:43)
[2020-12-30] MEDS: Aspirin 81 MG Tab.Chew PO SCH (11:43)
[2020-12-30] MEDS: Escitalopram 20 MG Tab PO SCH (11:43)
[2020-12-30] MEDS: Cholecalciferol (Vitamin D3) 10 MCG Tab PO SCH (11:59)
--- NOTE | 2020-12-30 21:28 | PCM.SN.2 ---
- Free Text/Narrative Note: Patient's sodium level corrected to 139. Is more alert/active today per staff and family. PO salt tabs added to regimen.
[2020-12-31] MEDS: Enoxaparin 40 MG/0.4 ML Syringe SUBCUT SCH (08:03)
[2020-12-31] MEDS: Polyethylene Glycol 3350 Powder 17 GM Packet PO SCH (08:07)
[2020-12-31] MEDS: Sodium Chloride 1 GM Tab PO SCH (08:08)
[2020-12-31] MEDS: Spironolactone 25 MG Tab PO SCH ×2 (08:08→18:40)
[2020-12-31] MEDS: Furosemide 20 MG Tab PO SCH (08:09)
[2020-12-31] MEDS: Losartan 50 MG Tab PO SCH (08:09)
[2020-12-31] MEDS: Insulin Regular, Human 100 Units/ML 3 ML Vial SUBCUT SCH ×2 (08:10→18:43)
[2020-12-31] MEDS: Insulin Glarg,Human.Rec.Analog 100 Unit/ML SUBCUT SCH (08:11)
[2020-12-31] MEDS: Nystatin Topical Powder 15 GM Bottle TOP SCH ×2 (08:21→19:21)
[2020-12-31] MEDS: Metoprolol Tartrate 25 MG Tab PO SCH ×2 (09:14→19:20)
[2020-12-31] MEDS: Potassium Chloride 10 MEQ Tab.ER PO SCH (13:05)
[2020-12-31] MEDS: Lactobacillus Rhamnosus GG (Probiotic) Cap PO SCH (13:05)
[2020-12-31] MEDS: Escitalopram 20 MG Tab PO SCH (13:06)
[2020-12-31] MEDS: Cholecalciferol (Vitamin D3) 10 MCG Tab PO SCH (13:06)
[2020-12-31] MEDS: Magnesium Oxide 400 MG Tab PO SCH (13:06)
[2020-12-31] MEDS: Acetaminophen 325 MG Tab PO PRN ×2 (13:15→18:39)
[2021-01-01] MEDS: Polyethylene Glycol 3350 Powder 17 GM Packet PO SCH (07:56)
[2021-01-01] MEDS: Spironolactone 25 MG Tab PO SCH ×2 (07:57→17:45)
[2021-01-01] MEDS: Furosemide 20 MG Tab PO SCH (07:58)
[2021-01-01] MEDS: Losartan 50 MG Tab PO SCH (07:58)
[2021-01-01] MEDS: Metoprolol Tartrate 25 MG Tab PO SCH ×2 (07:58→20:14)
[2021-01-01] MEDS: Sodium Chloride 1 GM Tab PO SCH (07:58)
[2021-01-01] MEDS: Enoxaparin 40 MG/0.4 ML Syringe SUBCUT SCH (07:59)
[2021-01-01] MEDS: Insulin Glarg,Human.Rec.Analog 100 Unit/ML SUBCUT SCH (08:00)
[2021-01-01] MEDS: Nystatin Topical Powder 15 GM Bottle TOP SCH ×2 (08:01→19:46)
[2021-01-01] MEDS: Insulin Regular, Human 100 Units/ML 3 ML Vial SUBCUT SCH ×2 (08:01→17:47)
[2021-01-01] MEDS: Aspirin 81 MG Tab.Chew PO SCH (12:16)
[2021-01-01] MEDS: Cholecalciferol (Vitamin D3) 10 MCG Tab PO SCH (12:17)
[2021-01-01] MEDS: Potassium Chloride 10 MEQ Tab.ER PO SCH (12:17)
[2021-01-01] MEDS: Lactobacillus Rhamnosus GG (Probiotic) Cap PO SCH (12:17)
[2021-01-01] MEDS: Escitalopram 20 MG Tab PO SCH (12:18)
[2021-01-01] MEDS: Magnesium Oxide 400 MG Tab PO SCH (12:18)
[2021-01-02] MEDS: Enoxaparin 40 MG/0.4 ML Syringe SUBCUT SCH (08:49)
[2021-01-02] MEDS: Polyethylene Glycol 3350 Powder 17 GM Packet PO SCH (08:49)
[2021-01-02] MEDS: Furosemide 20 MG Tab PO SCH (08:50)
[2021-01-02] MEDS: Losartan 50 MG Tab PO SCH (08:51)
[2021-01-02] MEDS: Spironolactone 25 MG Tab PO SCH ×2 (08:51→18:16)
[2021-01-02] MEDS: Sodium Chloride 1 GM Tab PO SCH (08:51)
[2021-01-02] MEDS: Insulin Regular, Human 100 Units/ML 3 ML Vial SUBCUT SCH ×2 (08:52→18:17)
[2021-01-02] MEDS: Insulin Glarg,Human.Rec.Analog 100 Unit/ML SUBCUT SCH (08:53)
[2021-01-02] MEDS: Nystatin Topical Powder 15 GM Bottle TOP SCH ×2 (08:56→19:17)
[2021-01-02] MEDS: Acetaminophen 325 MG Tab PO PRN (10:05)
[2021-01-02] MEDS: Metoprolol Tartrate 25 MG Tab PO SCH ×2 (11:50→19:16)
[2021-01-02] MEDS: Escitalopram 20 MG Tab PO SCH (11:51)
[2021-01-02] MEDS: Lactobacillus Rhamnosus GG (Probiotic) Cap PO SCH (11:51)
[2021-01-02] MEDS: Magnesium Oxide 400 MG Tab PO SCH (11:51)
[2021-01-02] MEDS: Cholecalciferol (Vitamin D3) 10 MCG Tab PO SCH (11:51)
[2021-01-02] MEDS: Potassium Chloride 10 MEQ Tab.ER PO SCH (11:51)
[2021-01-03] MEDS: Metoprolol Tartrate 25 MG Tab PO SCH ×2 (08:40→19:16)
[2021-01-03] MEDS: Spironolactone 25 MG Tab PO SCH ×2 (08:40→17:31)
[2021-01-03] MEDS: Sodium Chloride 1 GM Tab PO SCH (08:40)
[2021-01-03] MEDS: Furosemide 20 MG Tab PO SCH (08:42)
[2021-01-03] MEDS: Losartan 50 MG Tab PO SCH (08:42)
[2021-01-03] MEDS: Enoxaparin 40 MG/0.4 ML Syringe SUBCUT SCH (08:43)
[2021-01-03] MEDS: Nystatin Topical Powder 15 GM Bottle TOP SCH ×2 (08:44→19:16)
[2021-01-03] MEDS: Polyethylene Glycol 3350 Powder 17 GM Packet PO SCH (08:44)
[2021-01-03] MEDS: Insulin Regular, Human 100 Units/ML 3 ML Vial SUBCUT SCH ×2 (08:44→17:30)
[2021-01-03] MEDS: traMADol 50 MG Tab PO PRN (08:45)
[2021-01-03] MEDS: Insulin Glarg,Human.Rec.Analog 100 Unit/ML SUBCUT SCH (08:52)
[2021-01-03] MEDS: Magnesium Oxide 400 MG Tab PO SCH (12:22)
[2021-01-03] MEDS: Lactobacillus Rhamnosus GG (Probiotic) Cap PO SCH (12:22)
[2021-01-03] MEDS: Aspirin 81 MG Tab.Chew PO SCH (12:22)
[2021-01-03] MEDS: Potassium Chloride 10 MEQ Tab.ER PO SCH (12:22)
[2021-01-03] MEDS: Escitalopram 20 MG Tab PO SCH (12:22)
[2021-01-03] MEDS: Cholecalciferol (Vitamin D3) 10 MCG Tab PO SCH (12:23)
[2021-01-04] MEDS: Spironolactone 25 MG Tab PO SCH ×2 (07:54→18:31)
[2021-01-04 07:55] LABS: CHLORIDE,CL 97 mmol/L (98-107); SODIUM,NA 132 mmol/L (136-145)
[2021-01-04] MEDS: Sodium Chloride 1 GM Tab PO SCH (07:55)
[2021-01-04] MEDS: Losartan 50 MG Tab PO SCH (07:55)
[2021-01-04] MEDS: Insulin Glarg,Human.Rec.Analog 100 Unit/ML SUBCUT SCH (07:56)
[2021-01-04] MEDS: Insulin Regular, Human 100 Units/ML 3 ML Vial SUBCUT SCH ×2 (07:56→18:32)
[2021-01-04] MEDS: Metoprolol Tartrate 25 MG Tab PO SCH ×2 (07:59→19:13)
[2021-01-04] MEDS: CINNAMON PO SCH (08:00)
[2021-01-04] MEDS: Enoxaparin 40 MG/0.4 ML Syringe SUBCUT SCH (08:00)
[2021-01-04] MEDS: Polyethylene Glycol 3350 Powder 17 GM Packet PO SCH (08:02)
[2021-01-04] MEDS: Nystatin Topical Powder 15 GM Bottle TOP SCH ×2 (08:03→19:14)
[2021-01-04] MEDS: Furosemide 20 MG Tab PO SCH (08:08)
[2021-01-04] MEDS: Cholecalciferol (Vitamin D3) 10 MCG Tab PO SCH (12:11)
[2021-01-04] MEDS: Magnesium Oxide 400 MG Tab PO SCH (12:12)
[2021-01-04] MEDS: Lactobacillus Rhamnosus GG (Probiotic) Cap PO SCH (12:12)
[2021-01-04] MEDS: Escitalopram 20 MG Tab PO SCH (12:12)
[2021-01-04] MEDS: Potassium Chloride 10 MEQ Tab.ER PO SCH (12:12)
[2021-01-04] MEDS: traMADol 50 MG Tab PO PRN (15:19)
[2021-01-05] MEDS: Metoprolol Tartrate 25 MG Tab PO SCH ×2 (07:56→19:35)
[2021-01-05] MEDS: Losartan 50 MG Tab PO SCH (07:56)
[2021-01-05] MEDS: Sodium Chloride 1 GM Tab PO SCH (07:57)
[2021-01-05] MEDS: Spironolactone 25 MG Tab PO SCH ×2 (07:57→18:02)
[2021-01-05] MEDS: Nystatin Topical Powder 15 GM Bottle TOP SCH ×2 (07:57→19:34)
[2021-01-05] MEDS: Furosemide 20 MG Tab PO SCH (07:57)
[2021-01-05] MEDS: CINNAMON PO SCH (07:57)
[2021-01-05] MEDS: Insulin Regular, Human 100 Units/ML 3 ML Vial SUBCUT SCH ×2 (07:58→18:03)
[2021-01-05] MEDS: Insulin Glarg,Human.Rec.Analog 100 Unit/ML SUBCUT SCH (07:58)
[2021-01-05] MEDS: Enoxaparin 40 MG/0.4 ML Syringe SUBCUT SCH (07:58)
[2021-01-05] MEDS: Polyethylene Glycol 3350 Powder 17 GM Packet PO SCH (07:59)
[2021-01-05] MEDS: Aspirin 81 MG Tab.Chew PO SCH (11:48)
[2021-01-05] MEDS: Cholecalciferol (Vitamin D3) 10 MCG Tab PO SCH (11:48)
[2021-01-05] MEDS: Escitalopram 20 MG Tab PO SCH (11:48)
[2021-01-05] MEDS: Potassium Chloride 10 MEQ Tab.ER PO SCH (11:48)
[2021-01-05] MEDS: Magnesium Oxide 400 MG Tab PO SCH (11:48)
[2021-01-05] MEDS: Lactobacillus Rhamnosus GG (Probiotic) Cap PO SCH (11:49)
[2021-01-05] MEDS: Acetaminophen 325 MG Tab PO PRN (14:56)
[2021-01-06] MEDS: Enoxaparin 40 MG/0.4 ML Syringe SUBCUT SCH (07:25)
[2021-01-06] MEDS: Sodium Chloride 1 GM Tab PO SCH (07:26)
[2021-01-06] MEDS: traMADol 50 MG Tab PO PRN ×2 (07:26→19:17)
[2021-01-06] MEDS: Furosemide 20 MG Tab PO SCH (07:26)
[2021-01-06] MEDS: Metoprolol Tartrate 25 MG Tab PO SCH ×2 (07:27→19:20)
[2021-01-06] MEDS: Losartan 50 MG Tab PO SCH (07:27)
[2021-01-06] MEDS: Spironolactone 25 MG Tab PO SCH ×2 (07:28→17:15)
[2021-01-06] MEDS: CINNAMON PO SCH (07:30)
[2021-01-06] MEDS: Polyethylene Glycol 3350 Powder 17 GM Packet PO SCH (07:36)
[2021-01-06] MEDS: Insulin Regular, Human 100 Units/ML 3 ML Vial SUBCUT SCH ×2 (07:38→17:54)
[2021-01-06] MEDS: Insulin Glarg,Human.Rec.Analog 100 Unit/ML SUBCUT SCH (07:38)
[2021-01-06] MEDS: Nystatin Topical Powder 15 GM Bottle TOP SCH ×2 (07:40→19:19)
[2021-01-06] MEDS: Escitalopram 20 MG Tab PO SCH (11:52)
[2021-01-06] MEDS: Lactobacillus Rhamnosus GG (Probiotic) Cap PO SCH (11:52)
[2021-01-06] MEDS: Cholecalciferol (Vitamin D3) 10 MCG Tab PO SCH (11:53)
[2021-01-06] MEDS: Potassium Chloride 10 MEQ Tab.ER PO SCH (11:53)
[2021-01-06] MEDS: Magnesium Oxide 400 MG Tab PO SCH (11:53)
[2021-01-06] MEDS: Menthol/Methyl Salicylate 85 GM Tube TOP PRN ×2 (11:54→19:21)
[2021-01-06] MEDS: Acetaminophen 325 MG Tab PO PRN (17:15)
[2021-01-07] MEDS: Enoxaparin 40 MG/0.4 ML Syringe SUBCUT SCH (07:52)
[2021-01-07] MEDS: Polyethylene Glycol 3350 Powder 17 GM Packet PO SCH (07:52)
[2021-01-07] MEDS: Spironolactone 25 MG Tab PO SCH ×2 (07:53→18:00)
[2021-01-07] MEDS: Metoprolol Tartrate 25 MG Tab PO SCH ×2 (07:53→19:16)
[2021-01-07] MEDS: Sodium Chloride 1 GM Tab PO SCH (07:53)
[2021-01-07] MEDS: Furosemide 20 MG Tab PO SCH (07:54)
[2021-01-07] MEDS: Losartan 50 MG Tab PO SCH (07:54)
[2021-01-07] MEDS: Acetaminophen 325 MG Tab PO PRN (07:54)
[2021-01-07] MEDS: Insulin Regular, Human 100 Units/ML 3 ML Vial SUBCUT SCH ×2 (07:55→18:01)
[2021-01-07] MEDS: Insulin Glarg,Human.Rec.Analog 100 Unit/ML SUBCUT SCH (07:55)
[2021-01-07] MEDS: CINNAMON PO SCH (07:57)
[2021-01-07] MEDS: Nystatin Topical Powder 15 GM Bottle TOP SCH ×2 (07:58→19:15)
[2021-01-07] MEDS: Escitalopram 20 MG Tab PO SCH (11:24)
[2021-01-07] MEDS: Lactobacillus Rhamnosus GG (Probiotic) Cap PO SCH (11:24)
[2021-01-07] MEDS: Magnesium Oxide 400 MG Tab PO SCH (11:24)
[2021-01-07] MEDS: Cholecalciferol (Vitamin D3) 10 MCG Tab PO SCH (11:24)
[2021-01-07] MEDS: Aspirin 81 MG Tab.Chew PO SCH (11:24)
[2021-01-07] MEDS: Potassium Chloride 10 MEQ Tab.ER PO SCH (11:24)
--- NOTE | 2021-01-07 13:39 | PCM.SN.2 ---
- Free Text/Narrative Note: Late entry from 01/03/2021 1500. Patient has been having some low BP's. She is on Metoprolol 12.5 mg. Clarification of orders provided so that if the diastolic is <60 they are to hold the dose. In addition, Nathalia is requesting to be on Cinnamon with biotin and chromium like she was at home. This was reviewed with pharmacy and there are no contraindications or interactions with her other medications so this will be started. Vitals reviewed. She is trying to cooperate with therapy.
[2021-01-07] MEDS: traMADol 50 MG Tab PO PRN ×2 (14:25→19:15)
[2021-01-08] MEDS: Sodium Chloride 1 GM Tab PO SCH (07:47)
[2021-01-08] MEDS: Metoprolol Tartrate 25 MG Tab PO SCH ×2 (07:47→19:32)
[2021-01-08] MEDS: CINNAMON PO SCH (07:48)
[2021-01-08] MEDS: Spironolactone 25 MG Tab PO SCH ×2 (07:48→17:34)
[2021-01-08] MEDS: Polyethylene Glycol 3350 Powder 17 GM Packet PO SCH (07:48)
[2021-01-08] MEDS: Losartan 50 MG Tab PO SCH (07:48)
[2021-01-08] MEDS: Furosemide 20 MG Tab PO SCH (07:48)
[2021-01-08] MEDS: Enoxaparin 40 MG/0.4 ML Syringe SUBCUT SCH (07:49)
[2021-01-08] MEDS: Insulin Glarg,Human.Rec.Analog 100 Unit/ML SUBCUT SCH (07:51)
[2021-01-08] MEDS: Insulin Regular, Human 100 Units/ML 3 ML Vial SUBCUT SCH ×2 (07:52→17:35)
[2021-01-08] MEDS: Nystatin Topical Powder 15 GM Bottle TOP SCH ×2 (07:56→19:33)
[2021-01-08] MEDS: Lactobacillus Rhamnosus GG (Probiotic) Cap PO SCH (12:28)
[2021-01-08] MEDS: Potassium Chloride 10 MEQ Tab.ER PO SCH (12:28)
[2021-01-08] MEDS: Cholecalciferol (Vitamin D3) 10 MCG Tab PO SCH (12:29)
[2021-01-08] MEDS: Magnesium Oxide 400 MG Tab PO SCH (12:29)
[2021-01-08] MEDS: Escitalopram 20 MG Tab PO SCH (12:29)
[2021-01-08] MEDS: traMADol 50 MG Tab PO PRN (19:32)
[2021-01-08] MEDS: Menthol/Methyl Salicylate 85 GM Tube TOP PRN (19:33)
[2021-01-09] MEDS: CINNAMON PO SCH (08:07)
[2021-01-09] MEDS: Enoxaparin 40 MG/0.4 ML Syringe SUBCUT SCH (08:09)
[2021-01-09] MEDS: Spironolactone 25 MG Tab PO SCH ×2 (08:09→17:19)
[2021-01-09] MEDS: Furosemide 20 MG Tab PO SCH (08:09)
[2021-01-09] MEDS: Losartan 50 MG Tab PO SCH (08:10)
[2021-01-09] MEDS: Sodium Chloride 1 GM Tab PO SCH ×2 (08:10→17:19)
[2021-01-09] MEDS: Metoprolol Tartrate 25 MG Tab PO SCH ×2 (08:10→19:49)
[2021-01-09] MEDS: Polyethylene Glycol 3350 Powder 17 GM Packet PO SCH (08:12)
[2021-01-09] MEDS: Nystatin Topical Powder 15 GM Bottle TOP SCH ×2 (08:13→19:41)
[2021-01-09] MEDS: Insulin Glarg,Human.Rec.Analog 100 Unit/ML SUBCUT SCH (08:13)
[2021-01-09] MEDS: Insulin Regular, Human 100 Units/ML 3 ML Vial SUBCUT SCH ×2 (08:15→17:19)
[2021-01-09] MEDS: Aspirin 81 MG Tab.Chew PO SCH (12:08)
[2021-01-09] MEDS: Potassium Chloride 10 MEQ Tab.ER PO SCH (12:08)
[2021-01-09] MEDS: Cholecalciferol (Vitamin D3) 10 MCG Tab PO SCH (12:08)
[2021-01-09] MEDS: Escitalopram 20 MG Tab PO SCH (12:08)
[2021-01-09] MEDS: Magnesium Oxide 400 MG Tab PO SCH (12:08)
[2021-01-09] MEDS: Lactobacillus Rhamnosus GG (Probiotic) Cap PO SCH (12:08)
[2021-01-10] MEDS: Furosemide 20 MG Tab PO SCH (08:15)
[2021-01-10] MEDS: Enoxaparin 40 MG/0.4 ML Syringe SUBCUT SCH (08:15)
[2021-01-10] MEDS: Sodium Chloride 1 GM Tab PO SCH ×2 (08:15→17:21)
[2021-01-10] MEDS: Metoprolol Tartrate 25 MG Tab PO SCH ×2 (08:16→19:09)
[2021-01-10] MEDS: Losartan 50 MG Tab PO SCH (08:18)
[2021-01-10] MEDS: Spironolactone 25 MG Tab PO SCH ×2 (08:18→17:21)
[2021-01-10] MEDS: Insulin Glarg,Human.Rec.Analog 100 Unit/ML SUBCUT SCH (08:20)
[2021-01-10] MEDS: Insulin Regular, Human 100 Units/ML 3 ML Vial SUBCUT SCH ×2 (08:20→17:21)
[2021-01-10] MEDS: CINNAMON PO SCH (08:21)
[2021-01-10] MEDS: Polyethylene Glycol 3350 Powder 17 GM Packet PO SCH (08:21)
[2021-01-10] MEDS: Nystatin Topical Powder 15 GM Bottle TOP SCH ×2 (08:21→20:11)
--- NOTE | 2021-01-10 11:20 | PCM.SN.2 ---
- Free Text/Narrative Note: Patient is a swingbed resident that is here due to physical deconditioning status post right hip fracture with replacement. She has been declining to work with physical therapy and would prefer to just stay in bed. She has had a low sodium level and yesterday the oral sodium chloride was increased to 2 gram daily. Order placed to recheck this on Thursday and adjust the dose if needed. Was started on Lexapro approximately 2 weeks ago and so it is not at full efficacy yet. Will continue to monitor. While visiting with her today she did smile at times, and says it will be closer for her sons if she moves to [facility] in [place]. This is the tentative plan right now for her to be moved to the SNF. Recertification form completed. She is alert and oriented, but slow to respond to questions. Heart regular. Lungs clear. No ROB.
[2021-01-10] MEDS: Lactobacillus Rhamnosus GG (Probiotic) Cap PO SCH (11:53)
[2021-01-10] MEDS: Cholecalciferol (Vitamin D3) 10 MCG Tab PO SCH (11:53)
[2021-01-10] MEDS: Magnesium Oxide 400 MG Tab PO SCH (11:53)
[2021-01-10] MEDS: Potassium Chloride 10 MEQ Tab.ER PO SCH (11:53)
[2021-01-10] MEDS: Escitalopram 20 MG Tab PO SCH (11:53)
[2021-01-10] MEDS: Menthol/Methyl Salicylate 85 GM Tube TOP PRN (18:25)
[2021-01-10] MEDS: traMADol 50 MG Tab PO PRN (18:25)
[2021-01-10] MEDS: Acetaminophen 325 MG Tab PO PRN (19:09)
[2021-01-10] MEDS ORDERED: Nystatin Topical Powder 15 GM Bottle TOP PRN (20:12)
[2021-01-11] MEDS: CINNAMON PO SCH (07:43)
[2021-01-11] MEDS: Losartan 50 MG Tab PO SCH (07:44)
[2021-01-11] MEDS: Sodium Chloride 1 GM Tab PO SCH ×2 (07:44→17:05)
[2021-01-11] MEDS: Insulin Regular, Human 100 Units/ML 3 ML Vial SUBCUT SCH ×2 (07:44→17:07)
[2021-01-11] MEDS: Insulin Glarg,Human.Rec.Analog 100 Unit/ML SUBCUT SCH (07:44)
[2021-01-11] MEDS: Metoprolol Tartrate 25 MG Tab PO SCH ×2 (07:45→19:25)
[2021-01-11] MEDS: Furosemide 20 MG Tab PO SCH (07:45)
[2021-01-11] MEDS: Spironolactone 25 MG Tab PO SCH ×2 (07:45→17:06)
[2021-01-11] MEDS: Polyethylene Glycol 3350 Powder 17 GM Packet PO SCH (07:46)
[2021-01-11] MEDS: Enoxaparin 40 MG/0.4 ML Syringe SUBCUT SCH (07:46)
[2021-01-11] MEDS: Cholecalciferol (Vitamin D3) 10 MCG Tab PO SCH (11:46)
[2021-01-11] MEDS: Escitalopram 20 MG Tab PO SCH (11:46)
[2021-01-11] MEDS: Aspirin 81 MG Tab.Chew PO SCH (11:47)
[2021-01-11] MEDS: Magnesium Oxide 400 MG Tab PO SCH (11:47)
[2021-01-11] MEDS: Lactobacillus Rhamnosus GG (Probiotic) Cap PO SCH (11:47)
[2021-01-11] MEDS: Potassium Chloride 10 MEQ Tab.ER PO SCH (11:47)
[2021-01-12] MEDS: Spironolactone 25 MG Tab PO SCH ×2 (07:26→17:38)
[2021-01-12] MEDS: Losartan 50 MG Tab PO SCH (07:26)
[2021-01-12] MEDS: Insulin Regular, Human 100 Units/ML 3 ML Vial SUBCUT SCH ×2 (07:26→17:06)
[2021-01-12] MEDS: Furosemide 20 MG Tab PO SCH (07:27)
[2021-01-12] MEDS: Metoprolol Tartrate 25 MG Tab PO SCH ×2 (07:27→20:01)
[2021-01-12] MEDS: Enoxaparin 40 MG/0.4 ML Syringe SUBCUT SCH (07:27)
[2021-01-12] MEDS: Sodium Chloride 1 GM Tab PO SCH ×2 (07:28→17:39)
[2021-01-12] MEDS: CINNAMON PO SCH (07:28)
[2021-01-12] MEDS: Polyethylene Glycol 3350 Powder 17 GM Packet PO SCH (07:28)
[2021-01-12] MEDS: Insulin Glarg,Human.Rec.Analog 100 Unit/ML SUBCUT SCH (07:30)
[2021-01-12] MEDS: Potassium Chloride 10 MEQ Tab.ER PO SCH (12:32)
[2021-01-12] MEDS: Lactobacillus Rhamnosus GG (Probiotic) Cap PO SCH (12:33)
[2021-01-12] MEDS: Escitalopram 20 MG Tab PO SCH (12:33)
[2021-01-12] MEDS: Cholecalciferol (Vitamin D3) 10 MCG Tab PO SCH (12:33)
[2021-01-12] MEDS: Magnesium Oxide 400 MG Tab PO SCH (12:33)
[2021-01-12] MEDS: CIPROFLOXACIN 500 MG PO SCH (17:39)
[2021-01-12] MEDS ORDERED: Ciprofloxacin 500 MG Tab PO SCH (18:00)
[2021-01-12] MEDS: traMADol 50 MG Tab PO PRN (21:04)
[2021-01-12] MEDS: Menthol/Methyl Salicylate 85 GM Tube TOP PRN (21:05)
[2021-01-13] MEDS: Spironolactone 25 MG Tab PO SCH ×2 (08:34→17:12)
[2021-01-13] MEDS: CIPROFLOXACIN 500 MG PO SCH ×2 (08:34→17:12)
[2021-01-13] MEDS: Insulin Regular, Human 100 Units/ML 3 ML Vial SUBCUT SCH ×2 (08:35→17:13)
[2021-01-13] MEDS: Losartan 50 MG Tab PO SCH (08:35)
[2021-01-13] MEDS: Insulin Glarg,Human.Rec.Analog 100 Unit/ML SUBCUT SCH (08:36)
[2021-01-13] MEDS: Metoprolol Tartrate 25 MG Tab PO SCH ×2 (08:37→19:16)
[2021-01-13] MEDS: Polyethylene Glycol 3350 Powder 17 GM Packet PO SCH (08:38)
[2021-01-13] MEDS: Enoxaparin 40 MG/0.4 ML Syringe SUBCUT SCH (08:38)
[2021-01-13] MEDS: CINNAMON PO SCH (08:38)
[2021-01-13] MEDS: traMADol 50 MG Tab PO PRN ×2 (08:39→19:16)
[2021-01-13] MEDS: Sodium Chloride 1 GM Tab PO SCH ×2 (08:39→17:15)
[2021-01-13] MEDS: Furosemide 20 MG Tab PO SCH (08:40)
[2021-01-13] MEDS: Aspirin 81 MG Tab.Chew PO SCH (17:11)
[2021-01-13] MEDS: Escitalopram 20 MG Tab PO SCH (17:12)
[2021-01-13] MEDS: Lactobacillus Rhamnosus GG (Probiotic) Cap PO SCH (17:13)
[2021-01-13] MEDS: Potassium Chloride 10 MEQ Tab.ER PO SCH (17:14)
[2021-01-13] MEDS: Magnesium Oxide 400 MG Tab PO SCH (17:14)
[2021-01-13] MEDS: Cholecalciferol (Vitamin D3) 10 MCG Tab PO SCH (17:15)
[2021-01-13] MEDS: Acetaminophen 325 MG Tab PO PRN (17:16)
[2021-01-14] MEDS: CINNAMON PO SCH (07:46)
[2021-01-14] MEDS: Losartan 50 MG Tab PO SCH (07:48)
[2021-01-14] MEDS: Furosemide 20 MG Tab PO SCH (07:48)
[2021-01-14] MEDS: Metoprolol Tartrate 25 MG Tab PO SCH (07:49)
[2021-01-14] MEDS: Spironolactone 25 MG Tab PO SCH (07:49)
[2021-01-14] MEDS: CIPROFLOXACIN 500 MG PO SCH (07:50)
[2021-01-14] MEDS: Insulin Regular, Human 100 Units/ML 3 ML Vial SUBCUT SCH (07:50)
[2021-01-14] MEDS: Insulin Glarg,Human.Rec.Analog 100 Unit/ML SUBCUT SCH (07:51)
[2021-01-14] MEDS: Sodium Chloride 1 GM Tab PO SCH (07:52)
[2021-01-14] MEDS: Polyethylene Glycol 3350 Powder 17 GM Packet PO SCH (07:52)
[2021-01-14 07:53] VITALS: BP 153/63; PULSE 62
[2021-01-14 07:53] LABS: CHLORIDE,CL 105 mmol/L (98-107); SODIUM,NA 141 mmol/L (136-145)
[2021-01-14] MEDS: traMADol 50 MG Tab PO PRN (07:54)
--- NOTE | 2021-01-14 11:28 | PCM.DCSUM1 ---
Discharge Summary - Hospital Course Brief History: This is an 89-year-old female patient that was living at home by herself. She ended up falling and fracturing her right hip. She had surgery to place a total right hip. She was here at the hospital in [place] and swing bed status for physical therapy and rehabilitation. Patient was not cooperating and declining physical therapy. She has become weak and unable to stand on her own. Even with a walker. Care conference was held with her 2 sons. It was decided that she would be transferred to [facility] in [facility]. Diagnosis: Stroke: No - Discharge Data Discharge Date: 01/14/21 ([facility]) Discharge Disposition: DC/Tfer to [facility] 03 Condition: Fair - Referral to Home Health Primary Care Physician: Raven Irwin NP Skilled Need: Physical Therapy - Discharge Diagnosis/Problem(s) (1) Status post right hip replacement SNOMED Code(s): 102992343, [id number], [id number], [id number] ICD Code: Z96.641 - PRESENCE OF RIGHT ARTIFICIAL HIP JOINT Status: Acute Current Visit: Yes - Patient Summary/Data Consults: Consultations 12/14/20 17:28 Consult to Speech Language Pathology [BALANCE ENGINEER Evaluation and Treatment] [CONS] Routine OT Evaluation and Treatment [CONS] Routine PT Evaluation and Treatment [CONS] Routine 12/14/20 17:29 Consult to Case Management/Machine Stripper Cutter [CONS] Routine 12/14/20 17:31 Consult to Dietary [Consult to Security And Compliance Project Manager] [CONS] Routine - Patient Instructions Diet: Usual Diet as Tolerated Activity: As Tolerated Activity, Other: mechanical Lift only for transfer Driving: Do Not Drive Showering/Bathing: May Shower Notify Provider of: Fever - Discharge Plan *PRESCRIPTION DRUG MONITORING PROGRAM REVIEWED*: Yes *COPY OF PRESCRIPTION DRUG MONITORING REPORT IN PATIENT MELECIO: No Prescriptions/Med Rec: Ciprofloxacin [Ciprofloxacin HCl] 500 mg PO BID 3 Days tablet Escitalopram [Lexapro] 20 mg PO DAILY@1200 30 Days #30 tablet Metoprolol Tartrate [Lopressor] 12.5 mg PO DAILY 30 Days #30 tablet Home Medications: Home Meds Ginkgo Biloba 40 mg PO DAILY 10/30/14 [History] Aspirin 81 mg PO Q48H 07/16/15 [History] Acetaminophen [Tylenol] 650 mg PO Q4H PRN 12/14/20 [History] [place] 500 mg PO DAILY 12/14/20 [History] Bisacodyl [Laxative Suppository] 10 mg RC DAILY PRN 12/14/20 [History] Calcium Carb/D3/Mag AA Chelate [Coral Calcium Capsule] 1 each PO DAILY 12/14/20 [History] Cinnamon Bark [Cinnamon] 1,000 mg PO DAILY 12/14/20 [History] Cranberry Fruit Extract [Cranberry] 425 mg PO DAILY 12/14/20 [History] Docusate Sodium/Sennosides [Senna Plus] 2 each PO BID PRN 12/14/20 [History] Enoxaparin [Lovenox] 40 mg SQ DAILY 12/14/20 [History] Insulin Glarg,Human.Rec.Analog [Lantus] 8 unit SQ DAILY 12/14/20 [History] Lactobacillus Acidophilus [Probiotic] 1 each PO DAILY 12/14/20 [History] Losartan [Cozaar] 25 mg PO DAILY 12/14/20 [History] Non-Formulary Medication [NF Drug] 1 each PO DAILY 12/14/20 [History] Non-Formulary Medication [NF Drug] 1 each PO DAILY 12/14/20 [History] polyethylene glycoL 3350 [MiraLAX] 17 gm PO DAILY 12/14/20 [History] Alum Hydrox/Mag Hydrox/Simeth [Mag-Al Plus] 30 ml PO Q8H PRN cup 01/14/21 [Rx] Ciprofloxacin [Ciprofloxacin HCl] 500 mg PO BID 3 Days tablet 01/14/21 [Rx] Escitalopram [Lexapro] 20 mg PO DAILY@1200 30 Days #30 tablet 01/14/21 [Rx] Furosemide [Lasix] 20 mg PO DAILY tablet 01/14/21 [Rx] Glucagon,Human Recombinant [Glucagen] 1 mg IM ASDIRECTED PRN vial 01/14/21 [Rx] Insulin Regular, Human [HumuLIN R] 0 unit SUBCUT BID vial 01/14/21 [Rx] Lactobacillus Rhamnosus GG [Culturelle] 1 cap PO DAILY@1200 cap 01/14/21 [Rx] Magnesium Hydroxide [Milk of Magnesia] 30 ml PO DAILY PRN cup 01/14/21 [Rx] Magnesium Oxide 400 mg PO DAILY@1200 tablet 01/14/21 [Rx] Menthol/Methyl Salicylate [Icy Hot] 0 gm TOP BID PRN tube 01/14/21 [Rx] Metoprolol Tartrate [Lopressor] 12.5 mg PO DAILY 30 Days #30 tablet 01/14/21 [Rx] Non-Formulary Medication [NF Drug] 1 each PO DAILY each 01/14/21 [Rx] Nystatin [Nystop] 0 gm TOP QID PRN bottle 01/14/21 [Rx] Ondansetron [Zofran ODT] 4 mg PO Q6H PRN tab.dis 01/14/21 [Rx] Potassium Chloride [Klor-Con 10] 10 meq PO DAILY@1200 tab.er 01/14/21 [Rx] Simethicone 80 mg PO Q4H PRN tab.chew 01/14/21 [Rx] Sodium Chloride 1 gm PO BID tablet 01/14/21 [Rx] Spironolactone [Aldactone] 12.5 mg PO BID tablet 01/14/21 [Rx] traMADol [Ultram] 50 mg PO Q6H PRN tablet 01/14/21 [Rx] Oxygen Therapy Mode: Room Air - Discharge Summary/Plan Comment DC Time >30 min.: Yes Discharge Summary/Plan Comment: Plan: Patient will be discharged today at noon to [facility] and enroll in [place]. This is per family and patient's request. No changes to her home medications. She will be continued on Cipro for urinary tract infection for 3 more days. That should end on 17 January would be her last dose. Also I did decrease her metoprolol tartrate from twice daily to once daily. She can take 12.5 mg in the morning. Monitor blood pressure. Blood sugar checks can be done as needed. Patient was started on Lexapro 2 weeks ago here in the hospital. Continue with Lexapro 20 mg daily. Patient is nonweightbearing she is not been able to tolerate transfers with 2 assist. She has been transferred only with mechanical lift only. - Patient Data Vitals - Most Recent: Last Vital Signs Temp 98.1 F 01/13/21 19:29 Pulse 62 01/14/21 07:49 Resp 18 01/13/21 19:29 BP 153/63 H 01/14/21 07:49 Pulse Ox 98 01/13/21 19:29 Weight - Most Recent: 147 lb 1.6 oz Lab Results - Last 24 hrs: Laboratory Results - last 24 hr 01/13/21 01/14/21 01/14/21 Range/Units 17:05 07:15 07:19 Sodium 141 (136-145) mmol/L Potassium 3.9 (3.5-5.1) mmol/L Chloride 105 (98-107) mmol/L Carbon Dioxide 30.2 (21.0-32.0) mmol/L BUN 23 H (7-18) mg/dL Creatinine 0.84 (0.51-1.17) mg/dL Est Cr Clr Drug Dosing 40.86 mL/min Estimated GFR (MDRD) > 60 mL/min Glucose 87 (70-99) mg/dL POC Glucose 90 95 (65-110) mg/dl Calcium 9.5 (8.5-10.1) mg/dL TANA Results - Last 24 hrs: Microbiology 01/12/21 13:26 Urine Culture - Final Urine, Quick Cath (In-Out) Coagulase Neg Staph Species Med Orders - Current: Current Medications Acetaminophen (Acetaminophen 325 Mg Tab) 650 mg PO Q4H PRN PRN Reason: Pain/Fever Last Admin: 01/13/21 17:16 Dose: 650 mg Documented by: Al Hydroxide/Mg Hydroxide (Mag-Al Plus) 30 ml PO Q8H PRN PRN Reason: Heartburn Last Admin: 12/23/20 14:07 Dose: 30 ml Documented by: Aspirin (Aspirin 81 Mg Tab.Chew) 81 mg PO Q48H [facility] Last Admin: 01/13/21 17:11 Dose: 81 mg Documented by: Bisacodyl (Dulcolax) 10 mg RECTAL DAILY PRN PRN Reason: Constipation Cholecalciferol (Cholecalciferol (Vitamin D3) 10 Mcg Tab) 20 mcg PO DAILY@1200 [facility] Last Admin: 01/13/21 17:15 Dose: 20 mcg Documented by: Ciprofloxacin (Ciprofloxacin 500 Mg Tab Own Med) 500 mg PO BID [facility] Last Admin: 01/14/21 07:50 Dose: 500 mg Documented by: Dextrose/Water (Dextrose 50% In Water) 50 ml IV ASDIRECTED PRN PRN Reason: Hypoglycemia Escitalopram Oxalate (Escitalopram 20 Mg Tab) 20 mg PO DAILY@1200 [facility] Last Admin: 01/13/21 17:12 Dose: 20 mg Documented by: Furosemide (Furosemide 20 Mg Tab) 20 mg PO DAILY [facility] Last Admin: 01/14/21 07:48 Dose: 20 mg Documented by: Glucagon (Glucagen) 1 mg IM ASDIRECTED PRN PRN Reason: Hypoglycemia Insulin Glargine (Insulin Glarg,Human.Rec.Analog 100 Unit/Ml) 12 unit SUBCUT DAILY [facility] Last Admin: 01/14/21 07:51 Dose: 12 unit Documented by: Insulin Human Regular (Insulin Regular, Human 100 Units/Ml 3 Ml Vial) 0 unit SUBCUT BID [facility]; Protocol Last Admin: 01/14/21 07:50 Dose: Not Given Documented by: Lactobacillus Rhamnosus (Lactobacillus Rhamnosus Gg (Probiotic) Cap) 1 cap PO DAILY@1200 [facility] Last Admin: 01/13/21 17:13 Dose: 1 cap Documented by: Losartan Potassium (Losartan 50 Mg Tab) 50 mg PO DAILY [facility] Last Admin: 01/14/21 07:48 Dose: 50 mg Documented by: Magnesium Hydroxide (Milk Of Magnesia) 30 ml PO DAILY PRN PRN Reason: Constipation Last Admin: 12/24/20 07:24 Dose: 30 ml Documented by: Magnesium Oxide (Magnesium Oxide 400 Mg Tab) 400 mg PO DAILY@1200 [facility] Last Admin: 01/13/21 17:14 Dose: 400 mg Documented by: Methyl Salicylate (Icy Hot Cream) 0 gm TOP BID PRN PRN Reason: Pain (mild 1-3) Last Admin: 01/12/21 21:05 Dose: 1 applic Documented by: Metoprolol Tartrate (Metoprolol Tartrate 25 Mg Tab) 12.5 mg PO Q12HR [facility] Last Admin: 01/14/21 07:49 Dose: 12.5 mg Documented by: Cinnamon 1500mg (Capsules) 1 each PO DAILY [facility] Last Admin: 01/14/21 07:46 Dose: 1 each Documented by: Nystatin (Nystatin Topical Powder 15 Gm Bottle) 0 gm TOP QID PRN PRN Reason: skin irritation/yeast Last Admin: 01/13/21 08:43 Dose: 1 applic Documented by: Ondansetron HCl (Ondansetron 4 Mg Tab.Dis) 4 mg PO Q6H PRN PRN Reason: Nausea/Vomiting Last Admin: 12/23/20 09:38 Dose: 4 mg Documented by: Polyethylene Glycol (Polyethylene Glycol 3350 Powder 17 Gm Packet) 17 gm PO DAILY [facility] Last Admin: 01/14/21 07:52 Dose: Not Given Documented by: Potassium Chloride (Potassium Chloride 10 Meq Tab.Er) 10 meq PO DAILY@1200 [facility] Last Admin: 01/13/21 17:14 Dose: Not Given Documented by: Senna/Docusate Sodium (Senna Plus) 2 tab PO BID PRN PRN Reason: Constipation Last Admin: 12/18/20 11:12 Dose: 2 tab Documented by: Simethicone (Simethicone) 80 mg PO Q4H PRN PRN Reason: Gas Sodium Chloride (Sodium Chloride 1 Gm Tab) 1 gm PO BID [facility] Last Admin: 01/14/21 07:52 Dose: 1 gm Documented by: Spironolactone (Spironolactone 25 Mg Tab) 12.5 mg PO BID [facility] Last Admin: 01/14/21 07:49 Dose: 12.5 mg Documented by: Tramadol HCl (Tramadol 50 Mg Tab) 50 mg PO Q6H PRN PRN Reason: Pain Last Admin: 01/14/21 07:54 Dose: 50 mg Documented by: Discontinued Medications Aspirin (Aspirin) 81 mg PO Q48H [facility] Last Admin: 12/24/20 08:45 Dose: Not Given Documented by: Cholecalciferol (Vitamin D3) 20 mcg PO DAILY [facility] Last Admin: 12/24/20 08:45 Dose: Not Given Documented by: Ciprofloxacin (Ciprofloxacin Hcl) 250 mg PO BID [facility] Stop: 12/26/20 18:00 Last Admin: 12/26/20 17:10 Dose: 250 mg Documented by: Ciprofloxacin (Ciprofloxacin 500 Mg Tab) 500 mg PO BID [facility] Dextrose/Water (Dextrose 50% In Water) 50 ml IV ASDIRECTED PRN PRN Reason: Hypoglycemia Enoxaparin Sodium (Enoxaparin 40 Mg/0.4 Ml Syringe) 40 mg SUBCUT DAILY [facility] Stop: 01/13/21 08:01 Last Admin: 01/13/21 08:38 Dose: 40 mg Documented by: Escitalopram Oxalate (Lexapro) 20 mg PO DAILY [facility] Last Admin: 12/24/20 08:45 Dose: Not Given Documented by: Ferrous Sulfate (Ferrous Sulfate) 325 mg PO BIDMEALS [facility] Last Admin: 12/22/20 08:00 Dose: 325 mg Documented by: Furosemide (Lasix) 20 mg PO DAILY@12 [facility] Last Admin: 12/16/20 13:06 Dose: 20 mg Documented by: Furosemide (Lasix) 20 mg PO ONETIME ONE Stop: 12/16/20 19:31 Last Admin: 12/16/20 20:07 Dose: 20 mg Documented by: Furosemide (Lasix) 20 mg PO BIDDIURETIC DUTCH Last Admin: 12/28/20 11:53 Dose: 20 mg Documented by: Glucagon (Glucagen) 1 mg IM ASDIRECTED PRN PRN Reason: Hypoglycemia Sodium Chloride (Normal Saline) 500 mls @ 500 mls/hr IV .BOLUS DUTCH Last Admin: 12/27/20 12:45 Dose: 500 mls/hr Documented by: Sodium Chloride (Sodium Chloride 3%) 500 mls @ 30 mls/hr IV CONTINUOUS ONE Stop: 12/29/20 12:09 Last Admin: 12/28/20 19:51 Dose: 30 mls/hr Documented by: Sodium Chloride (Sodium Chloride 3%) 500 mls @ 30 mls/hr IV ASDIRECTED DUT[facility] Sodium Chloride (Sodium Chloride 3%) 500 mls @ 30 mls/hr IV ASDIRECTED DUTCH Last Admin: 12/29/20 13:20 Dose: 30 mls/hr Documented by: Insulin Glargine (Lantus) 8 unit SUBCUT DAILY [facility] Last Admin: 12/24/20 07:38 Dose: 8 units Documented by: Lactobacillus Rhamnosus (Culturelle) 1 cap PO DAILY [facility] Last Admin: 12/24/20 08:45 Dose: Not Given Documented by: Losartan Potassium (Cozaar) 25 mg PO DAILY [facility] Magnesium Oxide (Magnesium Oxide) 400 mg PO DAILY [facility] Last Admin: 12/24/20 08:45 Dose: Not Given Documented by: Non-Formulary Medication (Lafayette [Lafayette]) 500 mg PO DAILY [facility] Non-Formulary Medication (Calcium Carb/D3/Mag Aa Chelate [Coral Calcium Capsule]) 1 each PO DAILY [facility] Non-Formulary Medication (Cinnamon Bark [Cinnamon]) 1,000 mg PO DAILY [facility] Non-Formulary Medication (Cranberry Fruit Extract [Cranberry]) 425 mg PO DAILY [facility] Non-Formulary Medication (Ginkgo Biloba [Ginkgo Biloba]) 40 mg PO DAILY [facility] Non-Formulary Medication (Non-Formulary Medication [Nf Drug]) 1 each PO DAILY [facility] Non-Formulary Medication (Non-Formulary Medication [Nf Drug]) 1 each PO DAILY [facility] Nystatin (Nystop) 0 gm TOP BID [facility] Last Admin: 12/25/20 12:11 Dose: 1 applic Documented by: Nystatin (Nystatin Topical Powder 15 Gm Bottle) 0 gm TOP Q12H [facility] Last Admin: 01/10/21 20:11 Dose: Not Given Documented by: Potassium Chloride (Klor-Con M20) 20 meq PO DAILY [facility] Last Admin: 12/21/20 07:58 Dose: 20 meq Documented by: Potassium Chloride (Klor-Con 10) 10 meq PO DAILY [facility] Last Admin: 12/24/20 08:45 Dose: Not Given Documented by: Sodium Chloride (Sodium Chloride 0.9% 10 Ml Syringe) 10 ml FLUSH ASDIRECTED PRN PRN Reason: Keep Vein Open Sodium Chloride (Sodium Chloride 1 Gm Tab) 1 gm PO DAILY [facility] Last Admin: 01/09/21 08:10 Dose: 1 gm Documented by:
== END 2021-01-14 12:35 | DRG 560 ==
LOC: LL.MS 14:40 → UNDODISIN 01-14 12:35
PROVIDERS: ADMIT Emergency Medicine; ATTEND Nurse Practitioner Family
DX: Z47.1 Aftercare following joint replacement surgery (principal); N30.00 Acute cystitis without hematuria; Z96.641 Presence of right artificial hip joint; S72.001D Fracture of unspecified part of neck of right femur, subsequent encounter for closed fracture with routine healing; Z79.82 Long term (current) use of aspirin; Z79.4 Long term (current) use of insulin; Z79.899 Other long term (current) drug therapy; Z88.1 Allergy status to other antibiotic agents; Z88.2 Allergy status to sulfonamides; H54.7 Unspecified visual loss; H91.90 Unspecified hearing loss, unspecified ear; Z95.0 Presence of cardiac pacemaker; I25.2 Old myocardial infarction; I12.9 Hypertensive chronic kidney disease with stage 1 through stage 4 chronic kidney disease, or unspecified chronic kidney disease; N18.31 Chronic kidney disease, stage 3a; M19.90 Unspecified osteoarthritis, unspecified site; D63.1 Anemia in chronic kidney disease; E11.22 Type 2 diabetes mellitus with diabetic chronic kidney disease; I44.1 Atrioventricular block, second degree; I71.4 Abdominal aortic aneurysm, without rupture; H91.10 Presbycusis, unspecified ear; Z20.822 Contact with and (suspected) exposure to COVID-19
CPT/HCPCS: 36415; 71045; 72170; 73560-RT; 73600-LT; 74019; 80048; 80053; 81001; 81003; 82550; 82553; 82607; 82728; 82746; 82962; 83540; 83550; 83735; 83880; 84443; 84484; 84550; 85025; 87086; 87088; 87186; 92526-GN; 92610-GN; 97110-GP; 97163-GP; 97165-GO; 97530-GO; 97530-GP; 99305; 99308; 99309; A9270-GY; J1650; J1815-GY; J7040; J7131; U0002